=== PATIENT | female | born 1960 | race Caucasian/White ===

== ENCOUNTER → 2020-08-30 13:57 | Outpatient (BNVA) | payer OTHER, SELFPAY | PROVIDERS: Family Provider Nurse Practitioner Family; PCP Nurse Practitioner Family; Visit Provider Nurse Practitioner Family | DX: R53.83 Other fatigue (principal); E55.9 Vitamin D deficiency, unspecified | CPT/HCPCS: 80053; 82306; 82607; 84439; 84443; 85025 ==

== ENCOUNTER → 2020-10-25 11:26 | Outpatient (BNVA) | payer OTHER, SELFPAY | PROVIDERS: Family Provider Nurse Practitioner Family; Visit Provider Nurse Practitioner Family | DX: R74.8 Abnormal levels of other serum enzymes (principal); F32.9 Major depressive disorder, single episode, unspecified; R79.89 Other specified abnormal findings of blood chemistry | CPT/HCPCS: 80076 ==

== ENCOUNTER 2020-10-31 07:07 | Outpatient (CLI) | payer OTHER, SELFPAY ==
--- NOTE | 2020-10-31 07:15 | US_ITS ---
WS: [id number] Complete ABDOMINAL ULTRASOUND HISTORY: R79.89 - Other specified abnormal findings of blood chemistry COMPARISON: 03/04/2013 Liver: 19.2 cm in length. Moderately enlarged liver with increased attenuation and echogenicity which is coarsened. No bile duct dilatation or mass. Gallbladder: Prior cholecystectomy. Pancreas: Normal size and echogenicity. CBD: 0.6 cm. Right kidney: 10.2 cm x 6.0 cm x 5.2 cm. No mass, cortical thickening or hydronephrosis. Left kidney: 12.8 cm x 5.9 cm x 5.8 cm. No mass, cortical thickening or hydronephrosis. Spleen: Normal size and echogenicity. Abdominal aorta and IVC are within normal limits. No ascites. US/US abdomen complete* [id number] IMPRESSION: 1. Prior cholecystectomy. 2. Moderate hepatomegaly and hepatic steatosis. 3. No bile duct dilatation.
== END 2020-10-31 07:08 | disposition home or self-care (01) ==
LOC: RAD 07:09
PROVIDERS: Visit Provider Nurse Practitioner Family
DX: R79.89 Other specified abnormal findings of blood chemistry (principal); Z90.49 Acquired absence of other specified parts of digestive tract; R16.0 Hepatomegaly, not elsewhere classified; K76.0 Fatty (change of) liver, not elsewhere classified
CPT/HCPCS: 76700

== ENCOUNTER → 2021-01-03 11:21 | Outpatient (BNVA) | payer OTHER, SELFPAY | PROVIDERS: PCP Nurse Practitioner Family; Visit Provider Nurse Practitioner Family | DX: R33.9 Retention of urine, unspecified (principal); F32.9 Major depressive disorder, single episode, unspecified; M25.541 Pain in joints of right hand; M25.542 Pain in joints of left hand; R79.89 Other specified abnormal findings of blood chemistry; E55.9 Vitamin D deficiency, unspecified; G43.009 Migraine without aura, not intractable, without status migrainosus; N31.9 Neuromuscular dysfunction of bladder, unspecified | CPT/HCPCS: 80053; 82306; 85025; 85651; 86038; 86140; 86431 ==

== ENCOUNTER → 2021-03-14 08:57 | Outpatient (BNVA) | payer OTHER, SELFPAY | PROVIDERS: PCP Nurse Practitioner Family; Referring Provider Nurse Practitioner Family; Visit Provider Internal Medicine Rheumatology | DX: M19.90 Unspecified osteoarthritis, unspecified site (principal); R76.8 Other specified abnormal immunological findings in serum; Z79.899 Other long term (current) drug therapy; Z11.59 Encounter for screening for other viral diseases; Z11.1 Encounter for screening for respiratory tuberculosis; E55.9 Vitamin D deficiency, unspecified; R09.89 Other specified symptoms and signs involving the circulatory and respiratory systems; R68.2 Dry mouth, unspecified; R60.0 Localized edema; Z87.891 Personal history of nicotine dependence | CPT/HCPCS: 99204 ==

== ENCOUNTER 2021-03-16 13:48 | Outpatient (CLI) | payer OTHER, SELFPAY ==
--- NOTE | 2021-03-16 13:51 | XR_ITS ---
WS: [id number] Chest 2 views, 03/16/2021 Clinical Data: Z79.899 - Other emt intermediate (current) drug therapy Comparison: Portable chest, 10/11/2011. Findings: No nodules, masses or effusions are seen. The heart is normal. The pulmonary vascularity is not increased. No pneumonia or pneumothorax is seen. XR/XR chest 2V* [id number] Impression: Negative chest.
--- NOTE | 2021-03-16 13:51 | XR_ITS ---
WS: [id number] Left hand, 3 views, 03/16/2021 Clinical Data: Z79.899 - Other alf (current) drug therapy Comparison: None. Findings: No fractures or dislocations are seen. The soft tissues are unremarkable. There is osteoarthritic betty rowing of the DIP joints of the second through fifth fingers of the left hand. There is no periarticular calcification seen. XR/XR hand LT min 3V* [id number] Impression: Osteoarthritis of the DIP joints of the second through fifth fingers of the lef t hand.
--- NOTE | 2021-03-16 13:51 | XR_ITS ---
WS: [id number] Right hand, 3 views, 03/16/2021 Clinical Data: Z79.899 - Other half-way (current) drug therapy Comparison: None. Findings: No fractures or dislocations are seen. The soft tissues are unremarkable. There is joint space narrowing of the second through fifth PIP joints of the right hand. No periarticular demineralization is seen. XR/XR hand RT min 3V* [id number] Impression: Osteoarthritis of the second through fifth PIP joints of the right hand.
--- NOTE | 2021-03-16 13:51 | XR_ITS ---
WS: [id number] Right foot, 3 views, 03/16/2021 Clinical Data: Z79.899 - Other half-way (current) drug therapy Comparison: None. Findings: No fractures or dislocations are seen. No bone destruction or erosion is noted. There is a bunion at the head of the right first metatarsal.There is a plantar spur. XR/XR foot RT min 3V* [id number] Impression: Small bunion at the head of the right first metatarsal
--- NOTE | 2021-03-16 13:51 | XR_ITS ---
WS: [id number] Left foot, 3 views, 03/16/2021 Clinical Data: Z79.899 - Other retirement (current) drug therapy Comparison: None. Findings: No fractures or dislocations are seen. No bone destruction or erosion is noted. Is a small bunion at the left first metatarsal.There is a small plantar spur. XR/XR foot LT min 3V* [id number] Impression: Small bunion at head of left first metatarsal.
[2021-03-16 16:59] LABS: Bilirubin Urine Neg (Negative); Blood Urine Neg (Negative); Glucose Urine UA Norm (Normal); Ketones Urine Negative (Negative); Leukocyte Esterase Urine Negative (Negative); Nitrate Urine Negative (Negative); Protein Urine Neg (Negative); Specific Gravity, Urine 1.015 (1.005-1.030); Urine Appearance Clear (CLEAR); Urine Color Yellow (Yellow); Urobilinogen Urine Norm (Negative); pH Urine 5 (5-7)
[2021-03-16 17:04] LABS: Add Urine Culture? No; Bacteria Urine 1+ /hpf; Mucus Urine 1+ /hpf
[2021-03-16 17:16] LABS: Urine Creatinine 66 mg/dL (28-217)
[2021-03-16 17:31] LABS: 25 Hydroxy Vitamin D 31 ng/mL (30-100); Alanine Aminotransferase 37 U/L (0-33); Albumin Level 4.5 g/dL (3.5-5.2); Alkaline Phosphatase 177 IU/L (35-105); Aspartate Amino Transferase 25 U/L (0-32); Globulin 2.7 g/dL (1.3-4.6); Total Bilirubin 0.2 mg/dL (0.15-1.2); Total Protein 7.2 g/dL (6.6-8.7)
[2021-03-16 22:28] LABS: Hepatitis B Core AB, Total Non-Reactive (Nonreactive); Hepatitis B Surface Antigen Non-Reactive (Nonreactive); Hepatitis C Virus Antibody Non-Reactive (Nonreactive)
[2021-03-16 22:43] LABS: Complement C3 160 mg/dL (90-180)
[2021-03-18 12:03] LABS: Quantiferon Mitogen 7.66 IU/mL; Quantiferon Nil 0.01 IU/mL; Quantiferon TB Gold NEGATIVE (NEGATIVE)
[2021-03-20 12:18] LABS: COMPLEMENT COMPONENT C3C 177 mg/dL (83-193); COMPLEMENT COMPONENT C4C 25 mg/dL (15-57)
[2021-03-20 12:53] LABS: COMPLEMENT, TOTAL (CH50) >60 U/mL (31-60)
[2021-03-21 14:14] LABS: THYROID PEROXIDASE ANTIBODIES 1 IU/mL (<9)
[2021-03-23 11:02] LABS: ANA PATTERN Cytoplasmic; ANA SCREEN, IFA POSITIVE (NEGATIVE); Anti-Nuclear AB Pattern #2 Nuclear, Centromere
[2021-03-25 01:33] LABS: DNA AB (DS) CRITHIDIA,IFA NEGATIVE (NEGATIVE)
[2021-03-27 19:17] LABS: CENTROMERE B ANTIBODY >8.0 POS AI (<1.0 NEG); JO-1 ANTIBODY <1.0 NEG AI (<1.0 NEG); RNP ANTIBODY <1.0 NEG AI (<1.0 NEG); SCL-70 ANTIBODY <1.0 NEG AI (<1.0 NEG); SJOGREN'S ANTIBODY (SS-A) <1.0 NEG AI (<1.0 NEG); SM ANTIBODY <1.0 NEG AI (<1.0 NEG); SS-B <1.0 NEG AI (<1.0 NEG)
== END 2021-03-16 13:49 | disposition home or self-care (01) ==
LOC: RAD 13:50
PROVIDERS: PCP Nurse Practitioner Family; Visit Provider Internal Medicine Rheumatology
DX: E55.9 Vitamin D deficiency, unspecified (principal); M19.90 Unspecified osteoarthritis, unspecified site; Z79.899 Other long term (current) drug therapy; R09.89 Other specified symptoms and signs involving the circulatory and respiratory systems; R76.8 Other specified abnormal immunological findings in serum; Z11.59 Encounter for screening for other viral diseases; Z11.1 Encounter for screening for respiratory tuberculosis
CPT/HCPCS: 36415; 71046; 73130; 73630; 80076; 81001; 82306; 82570; 86160; 86162; 86235; 86255; 86376; 86480; 86704; 86803; 87340

== ENCOUNTER 2021-03-31 15:07 | Outpatient (CLI) | payer OTHER, SELFPAY ==
--- NOTE | 2021-03-31 15:14 | US_ITS ---
WS: [id number] ULTRASOUND SOFT TISSUES neck. HISTORY: R60.0 - Localized edema COMPARISON: None available. TECHNIQUE: 2-D and color Doppler imaging is submitted. Ultrasound is directed to the parotid regions. There are a few small minimally complex cystic areas w ithin the parotid gland. There is no increased vascularity within these nodules. The largest in the R IGHT measures 5 x 4 x 5 mm. Largest nodule in the LEFT measures 5 x 4 x 5 mm. No suspicious mass or a denopathy. US/US soft tissue head neck [id number] IMPRESSION: 1. There are small cystic areas within each parotid gland. No solid mass. 2. No cervical lymphadenopathy.
== END 2021-03-31 15:08 | disposition home or self-care (01) ==
PROVIDERS: PCP Nurse Practitioner Family; Visit Provider Internal Medicine Rheumatology
DX: R60.0 Localized edema (principal)
CPT/HCPCS: 76536

== ENCOUNTER → 2021-04-04 13:23 | Outpatient (BNVA) | payer OTHER, SELFPAY | PROVIDERS: PCP Nurse Practitioner Family; Visit Provider Internal Medicine Rheumatology | DX: M19.90 Unspecified osteoarthritis, unspecified site (principal); R76.8 Other specified abnormal immunological findings in serum; R60.0 Localized edema; R68.2 Dry mouth, unspecified; Z79.899 Other long term (current) drug therapy; Z87.891 Personal history of nicotine dependence | CPT/HCPCS: 99214 ==

== ENCOUNTER 2021-04-04 14:53 | Outpatient (CLI) | payer OTHER, SELFPAY ==
[2021-04-04 15:57] LABS: Gamma Glutamyl Transferase 152 U/L (5-36)
== END 2021-04-04 14:54 | disposition home or self-care (01) ==
PROVIDERS: PCP Nurse Practitioner Family; Visit Provider Internal Medicine Rheumatology
DX: R74.8 Abnormal levels of other serum enzymes (principal); Z79.899 Other long term (current) drug therapy; R79.89 Other specified abnormal findings of blood chemistry
CPT/HCPCS: 36415; 82977

== ENCOUNTER → 2021-07-24 12:39 | Outpatient (BNVA) | payer OTHER, SELFPAY | PROVIDERS: PCP Nurse Practitioner Family; Visit Provider Internal Medicine Rheumatology | DX: M19.90 Unspecified osteoarthritis, unspecified site (principal); R76.8 Other specified abnormal immunological findings in serum; R60.0 Localized edema; R68.2 Dry mouth, unspecified; Z86.718 Personal history of other venous thrombosis and embolism; Z87.891 Personal history of nicotine dependence | CPT/HCPCS: 99214 ==

== ENCOUNTER 2021-08-04 11:12 | Outpatient (CLI) | payer OTHER, SELFPAY ==
[2021-08-04 14:03] LABS: Basophils # 0.1 10^3/uL (0.0-0.1); Basophils % 0.7 %; Eosinophils # 0.3 10^3/uL (0.0-0.8); Eosinophils % 3.7 %; Hematocrit 40.4 % (37.0-47.0); Hemoglobin 12.9 g/dL (11.5-15.3); Lymphocytes # 1.4 10^3/uL (0.8-4.8); Lymphocytes % 21.1 %; Mean Corpuscular HGB Conc 31.9 g/dL (30.0-36.0); Mean Corpuscular Hemoglobin 31.6 pg (28.0-34.0); Mean Platelet Volume 11.3 fL (7.4-10.4); Monocytes # 0.3 10^3/uL (0.2-0.9); Neutrophils # 4.63 10^3/uL (1.8-7.7); Neutrophils % 68.8 %; Nucleated Red Blood Cells % 0 %; Platelet Count 193 10^3/cmm (130-400); Red Blood Count 4.08 10^6/uL (4.1-5.3); Red Cell Distribution Width 13.2 % (12.1-15.1); White Blood Count 6.7 10^3/uL (4.0-10.0)
[2021-08-04 14:32] LABS: Alanine Aminotransferase 53 U/L (0-33); Albumin Level 4.3 g/dL (3.5-5.2); Alkaline Phosphatase 134 IU/L (35-105); Aspartate Amino Transferase 38 U/L (0-32); C Reactive Protein 7.5 mg/L (0.0-4.9); Glomerular Filtration Rate 126.3 mL/min (90-130); Total Bilirubin 0.2 mg/dL (0.15-1.2); Total Protein 7.3 g/dL (6.6-8.7)
== END 2021-08-04 11:13 | disposition home or self-care (01) ==
LOC: LAB 11:17
PROVIDERS: PCP Nurse Practitioner Family; Visit Provider Internal Medicine Rheumatology
DX: M19.90 Unspecified osteoarthritis, unspecified site (principal); Z79.899 Other long term (current) drug therapy
CPT/HCPCS: 80076; 82565; 85025; 86140

== ENCOUNTER → 2021-10-06 12:12 | Outpatient (BNVA) | payer OTHER, SELFPAY | PROVIDERS: PCP Nurse Practitioner Family; Visit Provider Nurse Practitioner Family | DX: Z20.822 Contact with and (suspected) exposure to COVID-19 (principal); Z11.52 Encounter for screening for COVID-19 | CPT/HCPCS: 87635 ==

== ENCOUNTER → 2021-12-05 15:50 | Outpatient (BNVA) | payer OTHER, SELFPAY | PROVIDERS: PCP Nurse Practitioner Family; Visit Provider Nurse Practitioner Women's Health | DX: Z01.419 Encounter for gynecological examination (general) (routine) without abnormal findings (principal) | CPT/HCPCS: 87624 ==

== ENCOUNTER 2022-02-05 15:51 | Outpatient (CLI) | payer OTHER, SELFPAY ==
[2022-02-05 16:19] LABS: Basophils # 0.1 10^3/uL (0.0-0.1); Basophils % 0.7 %; Eosinophils # 0.2 10^3/uL (0.0-0.8); Eosinophils % 2.3 %; Hematocrit 43.2 % (37.0-47.0); Hemoglobin 13.2 g/dL (11.5-15.3); Lymphocytes # 2.6 10^3/uL (0.8-4.8); Lymphocytes % 29.9 %; Mean Corpuscular HGB Conc 30.6 g/dL (30.0-36.0); Mean Corpuscular Hemoglobin 30.6 pg (28.0-34.0); Mean Corpuscular Volume 100.2 fl (81-99); Mean Platelet Volume 10.9 fL (7.4-10.4); Monocytes # 0.6 10^3/uL (0.2-0.9); Monocytes % 6.7 %; Neutrophils # 5.26 10^3/uL (1.8-7.7); Neutrophils % 59.7 %; Nucleated Red Blood Cells % 0 %; Platelet Count 200 10^3/cmm (130-400); Red Blood Count 4.31 10^6/uL (4.1-5.3); Red Cell Distribution Width 13.2 % (12.1-15.1); White Blood Count 8.8 10^3/uL (4.0-10.0)
[2022-02-05 16:45] LABS: Alanine Aminotransferase 41 U/L (0-33); Albumin Level 4.2 g/dL (3.5-5.2); Alkaline Phosphatase 114 IU/L (35-105); Aspartate Amino Transferase 25 U/L (0-32); C Reactive Protein 4.5 mg/L (0.0-4.9); Globulin 3.2 g/dL (1.3-4.6); Glomerular Filtration Rate 102.3 mL/min (90-130); Total Bilirubin 0.3 mg/dL (0.15-1.2); Total Protein 7.4 g/dL (6.6-8.7)
== END 2022-02-05 15:52 | disposition home or self-care (01) ==
PROVIDERS: PCP Nurse Practitioner Family; Visit Provider Internal Medicine Rheumatology
DX: M35.00 Sjogren syndrome, unspecified (principal); R76.8 Other specified abnormal immunological findings in serum; Z79.899 Other long term (current) drug therapy
CPT/HCPCS: 80076; 82565; 85025; 86140

== ENCOUNTER 2022-05-29 14:06 | Outpatient (CLI) | payer OTHER, SELFPAY ==
[2022-05-29 14:56] LABS: Basophils # 0.1 10^3/uL (0.0-0.1); Basophils % 0.9 %; Eosinophils # 0.4 10^3/uL (0.0-0.8); Eosinophils % 5.1 %; Hematocrit 41.2 % (37.0-47.0); Hemoglobin 13.7 g/dL (11.5-15.3); Lymphocytes # 1.8 10^3/uL (0.8-4.8); Lymphocytes % 24.8 %; Mean Corpuscular HGB Conc 33.3 g/dL (30.0-36.0); Mean Corpuscular Hemoglobin 31.3 pg (28.0-34.0); Mean Corpuscular Volume 94.1 fl (81-99); Mean Platelet Volume 11.4 fL (7.4-10.4); Monocytes # 0.6 10^3/uL (0.2-0.9); Monocytes % 8.2 %; Neutrophils # 4.46 10^3/uL (1.8-7.7); Neutrophils % 60.3 %; Nucleated Red Blood Cells % 0 %; Platelet Count 174 10^3/cmm (130-400); Red Blood Count 4.38 10^6/uL (4.1-5.3); Red Cell Distribution Width 13.5 % (12.1-15.1); White Blood Count 7.4 10^3/uL (4.0-10.0)
[2022-05-29 15:28] LABS: Alanine Aminotransferase 62 U/L (0-33); Albumin Level 4.4 g/dL (3.5-5.2); Alkaline Phosphatase 123 IU/L (35-105); Aspartate Amino Transferase 31 U/L (0-32); C Reactive Protein 10.7 mg/L (0.0-4.9); Globulin 2.7 g/dL (1.3-4.6); Glomerular Filtration Rate 126.3 mL/min (90-130); Total Bilirubin 0.3 mg/dL (0.15-1.2); Total Protein 7.1 g/dL (6.6-8.7)
== END 2022-05-29 14:07 | disposition home or self-care (01) ==
PROVIDERS: PCP Nurse Practitioner Family; Visit Provider Internal Medicine Rheumatology
DX: M35.00 Sjogren syndrome, unspecified (principal); R76.8 Other specified abnormal immunological findings in serum; Z79.899 Other long term (current) drug therapy
CPT/HCPCS: 36415; 80076; 82306; 82565; 84439; 84443; 85025; 86140

== ENCOUNTER 2022-09-05 13:58 | Outpatient (CLI) | payer OTHER, SELFPAY ==
[2022-09-05 18:33] LABS: Alanine Aminotransferase 49 U/L (0-33); Albumin Level 4.2 g/dL (3.5-5.2); Alkaline Phosphatase 117 U/L (35-105); Aspartate Amino Transferase 23 U/L (0-32); Globulin 3.1 g/dL (1.3-4.6); Total Bilirubin 0.3 mg/dL (0.15-1.2); Total Protein 7.3 g/dL (6.6-8.7)
== END 2022-09-05 13:59 | disposition home or self-care (01) ==
LOC: LAB 14:03
PROVIDERS: PCP Nurse Practitioner Family; Visit Provider Nurse Practitioner Family
DX: K74.3 Primary biliary cirrhosis (principal); K74.00 Hepatic fibrosis, unspecified
CPT/HCPCS: 36415; 80076

== ENCOUNTER 2022-09-12 07:07 | Outpatient (CLI) | payer OTHER, SELFPAY ==
[2022-09-12 08:07] LABS: Basophils # 0.1 10^3/uL (0.0-0.1); Basophils % 0.8 %; Eosinophils # 0.3 10^3/uL (0.0-0.8); Eosinophils % 3.6 %; Hematocrit 39.3 % (37.0-47.0); Hemoglobin 12.8 g/dL (11.5-15.3); Lymphocytes # 1.9 10^3/uL (0.8-4.8); Lymphocytes % 26.4 %; Mean Corpuscular HGB Conc 32.6 g/dL (30.0-36.0); Mean Corpuscular Volume 98.3 fl (81-99); Monocytes # 0.5 10^3/uL (0.2-0.9); Monocytes % 6.3 %; Neutrophils # 4.56 10^3/uL (1.8-7.7); Neutrophils % 62.4 %; Nucleated Red Blood Cells % 0 %; Platelet Count 178 10^3/cmm (130-400); Red Cell Distribution Width 13.5 % (12.1-15.1); White Blood Count 7.3 10^3/uL (4.0-10.0)
[2022-09-12 08:18] LABS: Estmated Average Glucose 105; Hemoglobin A1C 5.3 % (4.0-6.0)
[2022-09-12 08:31] LABS: Alanine Aminotransferase 46 U/L (0-33); Albumin Level 4.1 g/dL (3.5-5.2); Alkaline Phosphatase 115 U/L (35-105); Anion Gap 16.1 (5-19); Aspartate Amino Transferase 26 U/L (0-32); Blood Urea Nitrogen 9 mg/dL (8-23); Calcium 9.6 mg/dL (8.5-10.5); Carbon Dioxide 26 mmol/L (22-29); Chloride 101 mmol/L (98-107); Chol HDL Ratio 4.04 mg/dL (0.0-4.40); Cholesterol 202 mg/dL (0-200); Globulin 2.9 g/dL (1.3-4.6); Glomerular Filtration Rate 162.8 mL/min (90-130); Glucose 96 mg/dL (65-115); HDL Cholesterol 50 mg/dL (60-100); LDL Cholesterol Calculated 123 mg/dL (50-129); LDL HDL Ratio 2.46 RATIO (0.00-3.22); Osmolality Calculated 287 mOsm/kg (285-295); Potassium 4.1 mmol/L (3.5-5.1); Sodium 139 mmol/L (136-145); Thyroid Stimulating Hormone 1.88 uIU/mL (0.27-4.20); Total Bilirubin 0.4 mg/dL (0.15-1.2); Triglycerides 144 mg/dL (0-150)
[2022-09-12 08:32] LABS: Free T4 Free Thyroxine 1.34 ng/dL (0.82-1.77)
[2022-09-12 09:08] LABS: 25 Hydroxy Vitamin D 41 ng/mL (30-100); Vitamin B12 613 pg/mL (232-1245)
[2022-09-18 10:48] LABS: Vitamin A (Retinol) 57 mcg/dL (38-98)
== END 2022-09-12 07:08 | disposition home or self-care (01) ==
PROVIDERS: PCP Nurse Practitioner Family; Referring Provider Nurse Practitioner Family; Visit Provider Nurse Practitioner Family
DX: R53.83 Other fatigue (principal); Z79.899 Other long term (current) drug therapy; M25.541 Pain in joints of right hand; M25.542 Pain in joints of left hand; E55.9 Vitamin D deficiency, unspecified
CPT/HCPCS: 36415; 80053; 80061; 82306; 82607; 83036; 84439; 84443; 84590; 85025

== ENCOUNTER 2022-10-01 14:32 | Outpatient (CLI) | payer OTHER, SELFPAY ==
--- NOTE | 2022-10-01 14:39 | XR_ITS ---
WS: [id number] SCREENING DEXA SCAN [employer] CLINICAL INFORMATION: ASYMPTOMATIC POSTMENOPAUSAL STATUS COMPARISON: None. FINDINGS: The L1-L4 bone mineral density measures 1.063 g/cm2. This corresponds to a T score score of -1.0 and Z score of -0.8. Left femoral neck bone mineral density measures 1.018 g/cm2. This corresponds to a T score of 0.1 and Z score of 0.3. Right femoral neck bone mineral density measures 1.006 g/cm2. This corresponds to a T score 0.0of and Z score of 0.2. Mean femoral neck bone mineral density measures 1.012 g/cm2. This corresponds to a T score of 0.0 and Z score of 0.2. XR/XR DEXA axial skeleton* [id number] IMPRESSION: Osteopenia lumbar spine at the lower end of the range. Normal bone mineralizati on femoral necks. Patient's FRAX calculated 10 year probability for major osteoporotic fracture i s 8.2 % and osteoporotic hip fracture is 0.4%.
--- NOTE | 2022-10-01 14:39 | MM_ITS ---
WS: [id number] BILATERAL 3D TOMOSYNTHESIS DIGITAL SCREENING MAMMOGRAPHY WITH CAD CLINICAL INFORMATION: Z12.39 - Encounter for other screening for malignant neop... HISTORY: Screening mammogram. No current complaints. COMPARISON: 2019 TECHNIQUE: Bilateral CC and MLO views. FINDINGS: Scattered fibroglandular densities bilaterally. No suspicious focal mass, asymmetry, calcifications, or architectural distortion. No evidence of malignancy. Punctate calcifications. Vascular calcificati ons. MM/[place] [id number] IMPRESSION: BI-RADS: 2-Benign FOLLOW UP: 1 Year Follow-up Recommend return to annual screening mammography.
== END 2022-10-01 14:33 | disposition home or self-care (01) ==
PROVIDERS: PCP Nurse Practitioner Family; Visit Provider Nurse Practitioner Family
DX: Z78.0 Asymptomatic menopausal state (principal); Z12.39 Encounter for other screening for malignant neoplasm of breast; M85.88 Other specified disorders of bone density and structure, other site
CPT/HCPCS: 77063; 77067; 77080

== ENCOUNTER 2022-12-13 12:03 | Outpatient (CLI) | payer OTHER, SELFPAY ==
--- NOTE | 2022-12-13 12:16 | XR_ITS ---
WS: [id number] XR hip BI 3-4V wo/[place] [id number] REASON FOR EXAM: M25.552 - Pain in left hip FINDINGS: RIGHT HIP: Moderate narrowing of the right hip joint space with moderate subchondral sclerosis and osteophytosis of the acetabulum. No abnormality of the femoral head and neck, trochanter, or proximal femoral shaft. No soft tissue abnormality. XR/XR hip BI 3-4V wo/w pel [id number] IMPRESSION: Moderate osteoarthritis the right hip. LEFT HIP: Severe narrowing of the left hip joint with essentially [id number]-[id number] in the sup erior anterior joint. Small area of flattening and sclerosis in the femoral hea d adjacent to the ligj-xm-[id number] articulation with the acetabulum. Osteophyte formation along the femoral head and neck junction. Trochanteric region and proximal femoral shaft are unremarkable. No soft tissue abnormality. IMPRESSION: Severe osteoarthritis of the left hip with gplu-pj-[id number] articulation.
== END 2022-12-13 12:04 | disposition home or self-care (01) ==
PROVIDERS: PCP Nurse Practitioner Family; Visit Provider Nurse Practitioner Family
DX: M16.11 Unilateral primary osteoarthritis, right hip (principal)
CPT/HCPCS: 73522

== ENCOUNTER → 2023-02-18 09:34 | Outpatient (BNVA) | payer OTHER, SELFPAY | PROVIDERS: PCP Nurse Practitioner Family; Referring Provider Nurse Practitioner Family; Visit Provider Specialist | DX: M16.0 Bilateral primary osteoarthritis of hip (principal) | CPT/HCPCS: 73522 ==

== ENCOUNTER 2023-03-13 10:39 | Outpatient (CLI) | payer OTHER, SELFPAY ==
[2023-03-13 12:40] LABS: Basophils % 0.5 %; Eosinophils # 0.2 10^3/uL (0.0-0.8); Eosinophils % 2.4 %; Hematocrit 40.5 % (37.0-47.0); Hemoglobin 13.2 g/dL (11.5-15.3); Lymphocytes # 3.1 10^3/uL (0.8-4.8); Lymphocytes % 35.1 %; Mean Corpuscular HGB Conc 32.6 g/dL (30.0-36.0); Mean Corpuscular Hemoglobin 31.3 pg (28.0-34.0); Mean Platelet Volume 10.9 fL (7.4-10.4); Monocytes # 0.6 10^3/uL (0.2-0.9); Monocytes % 6.6 %; Neutrophils # 4.74 10^3/uL (1.8-7.7); Neutrophils % 54.6 %; Nucleated Red Blood Cells % 0 %; Platelet Count 203 10^3/cmm (130-400); Red Blood Count 4.22 10^6/uL (4.1-5.3); Red Cell Distribution Width 13.6 % (12.1-15.1); White Blood Count 8.7 10^3/uL (4.0-10.0)
[2023-03-13 13:03] LABS: Alanine Aminotransferase 38 U/L (0-33); Albumin Level 4.3 g/dL (3.5-5.2); Alkaline Phosphatase 92 U/L (35-105); Aspartate Amino Transferase 21 U/L (0-32); C Reactive Protein 7.4 mg/L (0.0-4.9); Globulin 2.6 g/dL (1.3-4.6); Glomerular Filtration Rate 162.8 mL/min (90-130); Total Bilirubin 0.3 mg/dL (0.15-1.2); Total Protein 6.9 g/dL (6.6-8.7)
== END 2023-03-13 10:40 | disposition home or self-care (01) ==
PROVIDERS: PCP Nurse Practitioner Family; Visit Provider Internal Medicine Rheumatology
DX: Z01.89 Encounter for other specified special examinations (principal)
CPT/HCPCS: 80076; 82565; 85025; 86140

== ENCOUNTER → 2023-03-19 11:29 | Outpatient (BNVA) | payer OTHER, SELFPAY | PROVIDERS: PCP Nurse Practitioner Family; Visit Provider Internal Medicine Rheumatology | DX: M17.12 Unilateral primary osteoarthritis, left knee (principal); M25.562 Pain in left knee; M25.561 Pain in right knee; M25.462 Effusion, left knee; M54.2 Cervicalgia | CPT/HCPCS: 72040; 73562 ==

== ENCOUNTER → 2023-04-15 14:23 | Outpatient (BNVA) | payer OTHER, SELFPAY | PROVIDERS: PCP Nurse Practitioner Family; Visit Provider Anesthesiology Pain Medicine | DX: M16.9 Osteoarthritis of hip, unspecified (principal) | CPT/HCPCS: 77002 ==

== ENCOUNTER 2023-04-16 09:18 | Outpatient (CLI) | payer OTHER, SELFPAY ==
--- NOTE | 2023-04-16 09:30 | MR_ITS ---
WS: [id number] MRI LUMBAR SPINE NONCONTRAST HISTORY: M54.16 - Radiculopathy, lumbar region, LEFT leg pain. COMPARISON: None available. TECHNIQUE: Sagittal and axial multisequence imaging is submitted. Moderate increase in the lumbar lordosis. Disc spaces are narrowed and desiccated throughout the lumb ar spine. No marrow edema or fracture. Conus terminates normally at L1-2 disc level. T12-L1: Mild asymmetric disc bulging to the RIGHT. Mild encroachment upon the RIGHT subarticular rece ss. L1-L2: Mild disc bulging. No stenosis. Small LEFT facet joint cyst. L2-L3: Very mild annular disc bulge with ligamentum flavum and facet arthritis. Small amount of fluid in the LEFT facet joint. L3-L4: Minimal disc bulging with a shallow broad-based central to LEFT paracentral disc protrusion. V junaid mild contact on the traversing LEFT L4 nerve root. L4-L5: Mild to moderate bilateral facet joint arthritis and ligamentum flavum hypertrophy. Small amou nt of fluid in the LEFT facet joint. There is very slight encroachment upon the subarticular recesses . L5-S1: Mild annular disc bulging. Asymmetric disc bulging to the RIGHT contacting the RIGHT S1 nerve root. Lesser contact on the LEFT S1 nerve root. No significant foraminal stenosis. Several small renal cyst RIGHT kidney with the largest measuring 2.5 cm. MR/MR lumbar spine wo con* [id number] IMPRESSION: 1. No high-grade central stenosis. 2. Asymmetric disc bulging to the RIGHT at L5-S1 with a disc contacting the RI GHT S1 nerve root. Slightly less contact on the LEFT S1 nerve root. 3. Broad-based central to LEFT paracentral disc protrusion at L3-4. Very minim al contact on the traversing LEFT L4 nerve root. 4. Minimal encroachment upon the subarticular recesses at L4-5. 5. Facet joint arthritis from L3-4 to L5-S1. Most significant at L4-5.
== END 2023-04-16 09:19 | disposition home or self-care (01) ==
PROVIDERS: PCP Nurse Practitioner Family; Visit Provider Anesthesiology Pain Medicine
DX: M51.17 Intervertebral disc disorders with radiculopathy, lumbosacral region (principal); M47.897 Other spondylosis, lumbosacral region
CPT/HCPCS: 72148

== ENCOUNTER → 2023-07-15 15:00 | Outpatient (BNVA) | payer OTHER, SELFPAY | PROVIDERS: PCP Nurse Practitioner Family; Visit Provider Specialist | DX: M16.0 Bilateral primary osteoarthritis of hip (principal) | CPT/HCPCS: 81003; 85025 ==

== ENCOUNTER 2023-07-16 10:01 | Observation (INO) | payer OTHER, SELFPAY ==
[2023-07-12 14:09] VITALS: BMI 32.6
[2023-07-16] VITALS (23 sets, daily range): BP systolic 110–166; BP diastolic 56–92; PULSE 60–78; RESP 15–18; TEMP 36–36.9; O2SAT 74–99
[2023-07-16] MEDS: acetaminophen 1,000 MG/100 ML PIGGYBACK 400 MG IV ×3 (06:29→22:18)
[2023-07-16] MEDS: sodium chloride 0.9% 1,000 ML 30 ML IV (06:29)
[2023-07-16] MEDS: gabapentin 300 mg Capsule PO (06:29)
[2023-07-16] MEDS: CELEcoxib 200 mg Capsule 400 MG PO (06:30)
[2023-07-16] MEDS: scopolamine 1.5 Patch 1 PATCH TRANSDERMA (06:50)
--- NOTE | 2023-07-16 06:57 | P.HPUD_ITS ---
Surgery/Procedure H&P Update DATE OF PROCEDURE: July 16, 2023 DATE H&P PERFORMED: 07/15/23 H&P UPDATE INFORMATION: I have reviewed H&P completed within last 30 days, I have examined patient prior to procedure, No changes to prior documentation and H&P is in [facility] EMR on date indicated PLANNED PROCEDURE: Operation Date: 07/16/23 07:00 Proposed Procedures p LEFT TOTAL HIP ARTHROPLASTY 70040, M16.9(Left) - Ariadna Peter MD Related Problem List Diagnoses (1) Primary osteoarthritis of left hip:
[2023-07-16] MEDS: ceFAZolin 2,000 MG in sodium chloride 0.9% (plus) 50 ML 100 MG IV ×3 (07:03→22:38)
--- NOTE | 2023-07-16 07:32 | P.ANESASSM_ITS ---
Pre-Anesthetic Assessment Height/Weight: Height 1.73 m Weight 97.522 kg Temp Pulse Resp BP Pulse Ox O2 Del Method 96.8 F L 77 18 166/89 97 Room Air 07/16/23 06:07 07/16/23 06:07 07/16/23 06:07 07/16/23 06:07 07/16/23 06:07 07/16/23 06:08 Operation Date: 07/16/23 07:00 Proposed Procedures p LEFT TOTAL HIP ARTHROPLASTY 18364, M16.9(Left) - Ariadna Peter MD Familial anesthetic complications: none Was Beta Dean taken within 24 hours: N/A Was Clonidine taken within 24 hours: N/A Last intake: Intake Last Liquid Date 07/15/23 Last Liquid Time 21:00 Last Solid Date 07/15/23 Last Solid Time 21:00 Social No alcohol and No tobacco Exam alert, oriented x 3, clear to auscultation bilaterally and regular rate & rhythm Airway Submandibular: within normal limits Cervical ROM: within normal limits Mallampati: Class II Self cath GI Gastroesophageal Reflux Disease Metabolic Chronic steroid Musc/skel Osteoarthritis/DJD and Rheumatoid Arthritis Neuropsych Anxiety, Depression and Headache Anesthetic Plan ASA status: 3 Anesthesia: Regional (specify below) (SAB) Medications/Allergies Home Medications Medication Instructions Recorded Confirmed Last Taken Type aspirin 81 mg chewable tablet 81 mg PO DAILY 09/19/20 07/15/23 07/12/23 History (Germain Chewable Low Dose Aspirin) fluticasone propionate 50 2 spray intranasal DAILY PRN 09/19/20 07/15/23 07/12/23 History mcg/actuation nasal Allergy Symptoms spray,suspension (Flonase Allergy Relief) glucosamine HCl 500 mg tablet 500 mg PO BID 09/19/20 07/16/23 07/15/23 22:30 History magnesium 30 mg tablet 30 mg PO DAILY 01/03/21 07/15/23 07/12/23 History ascorbic acid (vitamin C) 1 tab PO DAILY 10/02/21 07/16/23 07/15/23 22:30 History cholecalciferol (vitamin D3) 25 2,000 unit PO DAILY 10/02/21 07/15/23 07/09/23 History mcg (1,000 unit) capsule loratadine 10 mg tablet (Claritin) 10 mg PO DAILY PRN Allergy Symptoms 12/05/21 07/15/23 07/12/23 History riboflavin (vitamin B2) 100 mg 100 mg PO DAILY 12/05/21 07/15/23 07/12/23 History tablet ondansetron HCl 4 mg tablet 4 mg PO TID PRN nausea and 01/18/23 07/15/23 07/12/23 Rx vomiting #30 tabs methenamine hippurate 1 gram tablet 1 g PO BID #180 tabs 02/05/23 07/16/23 07/15/23 22:30 Rx cevimeline 30 mg capsule 1 cap PO TID #90 caps 05/20/23 07/16/23 07/15/23 22:30 Rx pantoprazole 40 mg tablet,delayed 40 mg PO QAM #90 tabs 05/20/23 07/16/23 07/15/23 22:30 Rx release prednisone 5 mg tablet 5 mg PO DAILY #90 tabs 05/20/23 07/15/23 07/12/23 Rx divalproex 250 mg tablet,delayed 250 mg PO DAILY 07/12/23 07/16/23 07/15/23 22:30 History release (Depakote) escitalopram oxalate 20 mg tablet 20 mg PO DAILY 07/12/23 07/16/23 07/15/23 22:30 History leflunomide 10 mg tablet 10 mg PO DAILY 07/12/23 07/16/23 07/15/23 22:30 History nystatin 100,000 unit/gram topical 100,000 unit topical DAILY 07/12/23 07/16/23 07/15/23 22:30 History powder sulfasalazine 500 mg tablet 500 mg PO DAILY 07/12/23 07/15/23 07/12/23 History Allergies Allergy/AdvReac Type Severity Reaction Status Date / Time doxepin Allergy Intermediate SOB Verified 07/16/23 06:02 nitrofurantoin Allergy ADR-Dizzine Verified 07/16/23 06:02 [From Macrodantin] ss topiramate [From Topamax] Allergy ALGY-Rash Verified 07/16/23 06:02 tramadol [From Ultram] Allergy ADR-Halluci Verified 07/16/23 06:02 nating Current Medications Generic Name Dose Route Start Last Admin Trade Name Freq PRN Reason Stop Dose Admin Sodium Chloride 1,000 mls @ 30 mls/hr 07/16/23 06:00 07/16/23 06:29 Sodium Chloride 0.9% IV 07/17/23 05:59 30 mls/hr .Q24H CARMITA Administration PFSH Anesthesia Medical History Centromere antibody positive Depression Dry mouth GERD (gastroesophageal reflux disease) High risk medication use History of DVT of lower extremity (~09/2011) Right leg History of shingles Occurred in approximately 2016 Immunization counseling Inflammatory arthritis Neurogenic bladder Patient found to have badly distended poorly emptying bladder. Had performed self-catheterization for several years with slow recovery of spontaneous voiding. No pertinent past medical history neghx: htn,dm,thyroid,PE PCP: Lisa Alvarez SERGIO (obstructive sleep apnea) Using CPAP. Positive TARA (antinuclear antibody) Sicca syndrome Swelling of both parotid glands Urinary retention Surgical History History of cholecystectomy (~1997) Laparoscopic Hx of tonsillectomy Hx of tubal ligation (~1989) S/P endometrial ablation (09/08/04) Hysteroscopy with ThermaChoice endometrial ablation. Performed by Dr. Menjivar at [facility] in [place], [place] Family History Father Diabetes Heart disease Hypertension Grandmother Diabetes Paternal Heart disease Maternal Grandfather Stroke Maternal Family/Other Breast cancer Maternal Aunt--dx age 60's Ovarian cancer Maternal Aunt--dx age 60's Other Cancer Denies family history of Colon cancer Uterine cancer Thyroid disease Social History Smoking and tobacco status: never smoked Quit status (tobacco): has quit using tobacco Year quit tobacco: 10-15 YRS AGO Second hand smoke exposure: No Alcohol intake: never Substance/Drug Use: never Current occupational status: employed Current gender identity: Female Data Anesthesia Cardiac Studies: No Data to Display
--- NOTE | 2023-07-16 07:44 | SUR.OPER ---
called daughter and notified her of surgical start.
[2023-07-16] MEDS: ceFAZolin 1,000 mg SDV 1000 MG IRRIGATION (07:55)
[2023-07-16] MEDS: vancomycin 1,000 MG SDV 1000 MG INTRA-ARTI (07:56)
[2023-07-16] MEDS: BUPivacaine 0.5% INJ 30 mL INJECTION (09:17)
--- NOTE | 2023-07-16 09:58 | XR_ITS ---
WS: [id number] EXAMINATION: XR pelvis 1-2V* [id number] REASON FOR EXAM: S/P NIGEL COMPARISON: 02/18/2023 ORDER DATE: 07/16/2023 10:00 AM FINDINGS: There is no sign of any acute postoperative changes. Total left hip arthroplasty changes appear stabl e. No acute pelvic abnormality. IMPRESSION: Postoperative changes with satisfactory prosthesis positioning.
--- NOTE | 2023-07-16 10:20 | PM.OP ---
Operative Report Date of procedure: July 16, 2023 Pre-op diagnosis: Severe degenerative osteoarthritis left hip with femoral head collapse Post-op diagnosis: Severe degenerative osteoarthritis left hip with femoral head collapse Post-op findings: The patient posterior wall requiring screw fixation. Procedure done: Left total hip arthroplasty Implants: The [employer] total hip system with a size 52 mm by E alpha code Trident II Tritanium cluster hole acetabular shell with 6.5 mm low-profile hex head screws x3, an MDM liner size 42 mm inner diameter by E alpha code.? A size 4 Accolade II 127? neck angle hip stem with a size 28 mm x +0 mm femoral head and a pentecostalism MDM X3 insert size [id number] Specimens removed/disposition: Femoral head, disposed of Pathology: none sent Surgeon: Ariadna Peter Teacher Adult Education: [facility] operating room technicians Anesthesia: MAC (With spinal, ASA 3) Estimated blood loss (mL): 250 IV fluids (mL): 1,000 Urine output (mL): 300 Complications: None Findings: The hip was stable at 90 degrees of flexion with 30 degrees of adduction and 80 degrees of internal rotation.? It was also stable to external rotation and to toe hang. Posterior wall was deficient, and screws were utilized. Condition: stable Disposition: PACU (Then return to floor for postoperative rehabilitation and pain management) Brief History: This is an established 63 year old female patient here today for evaluation of her left hip pain. Patient states that she has had the pain for years. Patient states the left is worse than the right hip. Patient describes the pain as aching and sharp. Patient states the pain is to the lateral hip and into the groin area. After discussion, the patient wished to proceed with left total hip arthroplasty. Risks and complications were discussed with her and consents were signed in the office. Questions were answered. In the preoperative holding area, the extremity was marked. Procedure: Patient was brought to the operating theater.? She was transferred to the operating room table and subsequently administered a spinal anesthesia with MAC, ASA 3.? Following administration of adequate anesthesia, the patient was placed in full lateral position and held in position with a pegboard.? The patient's left lower extremity was then prepped and draped in usual fashion utilizing DuraPrep.? It was draped free.? Following prepping and draping, a surgical pause was performed.? At the time of surgical pause, we identified the site and side of surgery.? We also identified the patient and preoperative surgical markings.?Confirmation was made of equipment availability.? Additionally, the patient's preoperative IV antibiotic, Ancef 2 g, and TXA administration was confirmed as well.? X-rays were also reviewed. Following the surgical pause, an incision was made centering over the patient's greater trochanter continuing proximally and distally as necessary to allow access to the hip joint.? Dissection continued through skin and soft tissues using a scalpel, and hemostasis was obtained using electrocautery. Incision was extended secondary to the soft tissue in the area of the incision.? Sciatic nerve was identified and protected throughout the surgical procedure.? A Charnley U retractor was placed after the tensor fascia kanika had been incised longitudinally, and the sciatic nerve had been identified.? The hip was internally rotated, and the piriformis muscle was identified and tagged. Piriformis muscle along with the remaining short external rotators were then incised from the posterior aspect of the hip joint.? These were retracted posteriorly.? The capsule was entered in a T-type fashion with the edges being tagged, and subsequently the hip was dislocated.? There was very thickened labrum as well.? This was excised with further excision accomplished once the femoral head was removed.? Following hip dislocation, a femoral neck osteotomy was accomplished in the appropriate position.? The head was measured, but it was quite deformed.? Subsequently, it was disposed of.? We then evaluated the acetabulum. The femur was retracted anteriorly.? Soft tissues were retracted, and the labrum was removed.? We then began reaming.? Once the femoral head was removed, there was noted to be significant loss of cartilage over the head with the previously noted deformity and within the acetabulum.? We reamed to a size 51 to allow for a size 52 acetabular shell.? There was noted to be deficiency to the posterior wall. Care was taken not to over deep and the acetabulum to maintain soft tissue particularly given the patient's young age. Secondary to the soft bone present with reaming and with palpation, the decision was made to use screw fixation into the acetabular component. The acetabulum was impacted into position, and screws were placed uneventfully.? The MDM liner was then impacted into position with care being taken to assure it seated appropriately.? It was noted that the acetabulum matched the bony anatomy, but there was posterior deficiency as noted.? The cup was noted to seat nicely and had good fixation upon impact. Attention was directed to the proximal femur.? The proximal femur was lifted out of the wound.? A canal finder was passed after the box chisel.? The reamer was used to lateralize.? We then began broaching. We broached sequentially and had excellent fit and fill with the size 4 broach. ? A trial reduction was attempted with a +0 mm femoral head.? With this construct, the hip was very stable, and leg length was felt to be equal.? With this in place, we had the above excellent stabilities. Therefore, trial components were removed after the hip was dislocated.? The size 4 Accolade II 127? neck angle stem was impacted into position without difficulty and onto this was placed a +0 mm x 28 mm femoral head which had been assembled into the MDM insert size 42E.? With a +0 mm femoral head, we had the above-noted stability.? The stem was noted to seat nicely prior to placement of the femoral head.? The wound was copiously irrigated with 20 mL of Betadine and 500 mL of normal saline mixed together.? Subsequently, we suctioned this out and irrigated the wound copiously with lactated Ringer's.? At this time, with all components in appropriate position, the hip was reduced.? Following reduction of the prosthesis once again, we confirmed the stability of the hip.? Leg lengths were also felt to be satisfactory. Being satisfied with the prosthesis, attention was directed to closure.? Closure was accomplished with 0 Vicryl in the capsular tissues.? Piriformis was reattached with 0 Vicryl as well.? Tensor fascia kanika was closed with 0 Vicryl in an interrupted fashion.? The subcutaneous tissues were closed with a combination of 0 Vicryl and 2-0 Monocryl.? Vancomycin powder and a Gelfoam thrombin mixture was placed into the wound as well.? The wound was injected with bupivacaine plain, 30 cc as a local anesthetic. The skin was closed with a running 4-0 Monocryl followed by Dermabond Prineo followed by OpSite.? The patient was placed in an abduction pillow.? She was returned the Recovery Room in a satisfactory condition and will be discharged to the floor for postoperative rehabilitation and pain management.? There were no complications or specimens. Related Problem List Diagnoses (1) Primary osteoarthritis of left hip:
[2023-07-16] MEDS: gabapentin 300 mg Capsule 600 MG PO (12:31)
[2023-07-16] MEDS: oxyCODONE 5 mg IR Tab/Cap PO ×3 (12:31→20:06)
[2023-07-16] MEDS: chlorhexidine gluconate 0.12% Btl 473 mL 30 ML MUCOUS MEM ×3 (12:32→18:45)
[2023-07-16] MEDS: ondansetron 2 mg/ML SDV 2 mL 4 MG IVP (13:52)
--- NOTE | 2023-07-16 13:57 | ANE.PACU2 ---
Inpatient post-anesthesia follow up: Airway intact: Yes Vital signs: Temperature 97.3 F Pulse Rate 65 Respiratory Rate 18 Blood Pressure 123/74 Pulse Oximetry 98 Oxygen Delivery Me thod Room Air Oxygen Flow Rate Fraction of Inspir ed Oxygen Hydration adequate: Yes Nausea and vomiting: No Pain level: 1 Mental status: Baseline
[2023-07-16] MEDS: CELEcoxib 200 mg Capsule PO (18:45)
[2023-07-16] MEDS: mupirocin oint 22 gm 1 APPLIC NASAL (18:45)
[2023-07-16] MEDS: sennosides-docusate Tablet 2 TAB PO (18:45)
[2023-07-16] MEDS: iron polysaccharide complex 150 mg Capsule PO (18:45)
[2023-07-16] MEDS: calcium carbonate 500 mg Chew Tablet 1000 MG PO (18:45)
[2023-07-17] VITALS (8 sets, daily range): BP systolic 119–122; BP diastolic 64–75; PULSE 68–83; RESP 16–20; TEMP 36.7–37.1; O2SAT 2–98
[2023-07-17] MEDS: oxyCODONE 5 mg IR Tab/Cap PO ×3 (04:14→08:04)
[2023-07-17] MEDS: CELEcoxib 200 mg Capsule PO (06:07)
[2023-07-17] MEDS: pantoprazole DR 40 mg Tablet PO (06:07)
[2023-07-17] MEDS: acetaminophen 1,000 MG/100 ML PIGGYBACK 400 MG IV (06:08)
[2023-07-17 06:09] LABS: Basophils % 0.4 %; Eosinophils # 0.3 10^3/uL (0.0-0.8); Eosinophils % 3.2 %; Hematocrit 36.3 % (36-47); Lymphocytes # 1.1 10^3/uL (0.8-4.8); Mean Corpuscular HGB Conc 31.4 g/dL (30-55); Mean Corpuscular Hemoglobin 30.9 pg (27-33); Mean Corpuscular Volume 98.4 fl (85-98); Mean Platelet Volume 11.5 fL (7.4-10.4); Monocytes # 0.7 10^3/uL (0.2-0.9); Neutrophils # 6.16 10^3/uL (1.8-7.7); Neutrophils % 74.8 %; Nucleated Red Blood Cells % 0 %; Platelet Count 146 10^3/cmm (157-399); Red Blood Count 3.69 10^6/uL (3.85-5.65); Red Cell Distribution Width 13.2 % (12.1-15.1); White Blood Count 8.23 10^3/uL (3.29-11.43)
[2023-07-17] MEDS: ceFAZolin 2,000 MG in sodium chloride 0.9% (plus) 50 ML 100 MG IV (06:26)
[2023-07-17 06:27] LABS: Blood Urea Nitrogen 9 mg/dL (8-23); Calcium 8.5 mg/dL (8.5-10.5); Carbon Dioxide 26 mmol/L (22-29); Chloride 100 mmol/L (98-107); Glomerular Filtration Rate 226.2 mL/min (90-130); Glucose 120 mg/dL (65-115); Osmolality Calculated 280 mOsm/kg (285-295); Sodium 135 mmol/L (136-145)
[2023-07-17] MEDS: escitalopram 10 mg Tablet 20 MG PO (08:04)
[2023-07-17] MEDS: sennosides-docusate Tablet 2 TAB PO (08:04)
[2023-07-17] MEDS: aspirin 325 mg EC Tablet PO (08:04)
[2023-07-17] MEDS: divalproex DR 250 mg Tablet PO (08:04)
[2023-07-17] MEDS: predniSONE 5 mg Tablet PO (08:05)
[2023-07-17] MEDS: iron polysaccharide complex 150 mg Capsule PO (08:05)
[2023-07-17] MEDS: cholecalciferol (vitamin D3) 1,000 unit Tablet 1000 UNIT PO (08:05)
[2023-07-17] MEDS: multivitamin therapeutic Tablet 1 TAB PO (08:05)
[2023-07-17] MEDS: calcium carbonate 500 mg Chew Tablet 1000 MG PO (08:05)
--- NOTE | 2023-07-17 13:28 | PM.DCS ---
Discharge Providers Date of Admission: 07/16/23 10:01 Date of Discharge: July 17, 2023 Attending Provider at Admission: Ariadna Peter MD Attending Provider at Discharge: Ariadna Peter MD Primary Care Provider: XAVIER Lewis Diagnoses at Discharge Discharge Diagnosis (1) History of total left hip arthroplasty: Status: Acute Permanent problem details: Date of procedure: July 16, 2023 Diagnosis: Severe degenerative osteoarthritis left hip with femoral head collapse Procedure done: Left total hip arthroplasty Implants: The Bowen total hip system with a size 52 mm by E alpha code Trident II Tritanium cluster hole acetabular shell with 6.5 mm low-profile hex head screws x3, an MDM liner size 42 mm inner diameter by E alpha code. A size 4 Accolade II 127? neck angle hip stem with a size 28 mm x +0 mm femoral head and a protestant MDM X3 insert size [id number] (2) Primary osteoarthritis of left hip: Status: Acute Reason for Visit Reason for Visit: M16.9 Brief History: This is an established 63 year old female patient here today for evaluation of her left hip pain. Patient states that she has had the pain for years. Patient states the left is worse than the right hip. Patient describes the pain as aching and sharp. Patient states the pain is to the lateral hip and into the groin area.? After discussion, the patient wished to proceed with left total hip arthroplasty.? Risks and complications were discussed with her and consents were signed in the office.? Questions were answered.? In the preoperative holding area, the extremity was marked. Hospital Course Hospital Course Following successful uncemented left total hip arthroplasty, the patient was admitted under observation status for overnight observation. Patient underwent physical therapy and was felt to be safe and independent with her activities of daily living. She had no evidence of DVT. The day following surgery, she was independent and both the patient and her family were comfortable with her being discharged to home. She has a family member who is a physical therapist, and therefore, she is not interested in formal physical therapy as an outpatient. The patient is discharged and will follow-up with me as scheduled. Physical Exam Const: COMMON NORMALS: no acute distress, average body habitus, patient oriented x3 and alert GENERAL APPEARANCE: cooperative and comfortable ORIENTATION/CONSCIOUSNESS: Yes awake HENMT: COMMON NORMALS: normocephalic and atraumatic HEAD & SCALP: normocephalic and atraumatic Eye: GENERAL EYE: appearance normal, both eyes and all related structures Chest: COMMONS NORMALS: normal inspection of the chest Resp: COMMON NORMALS: normal respiratory effort EFFORT & INSPECTION: Yes able to speak in complete sentences and Yes symmetric chest movement Extremity: LEFT LOWER EXTREMITY: Yes hip joint (Dressing is dry and intact.) Left hip: Yes palpation (Minimal to no tenderness.), Yes ROM (Not evaluated.) and Yes neurovascular exam (Intact distally with no evidence of DVT.) Neuro: COMMON NORMALS: patient oriented x3 SENSORIUM/ORIENTATION: Yes alert Psych: COMMON NORMALS: mental status grossly normal APPEARANCE: Yes grossly normal ATTITUDE: Yes calm and Yes engaged ATTENTION/CONCENTRATION: Yes attention grossly intact Skin: COMMON NORMALS: no rashes or lesions noted GENERAL SKIN EXAM: no rashes or lesions noted Urinary Catheter Management: Marino: Cath Placed During This Visit: yes, but has since been removed by the nurse Reason for Continuing Indwelling Catheter: Perioperative Use in Selected Surgeries Urinary Catheter Date of Insertion: 07/16/23 Urinary Catheter Time of Insertion: 07:25 Date Urinary Catheter Removed: 07/17/23 Time Urinary Catheter Discontinued: 06:20 Discharge Data Studies Completed and Pending Completed Studies During Hospitalization Category Date Time Status XR pelvis 1-2V* [id number] Routine Exams 07/16/23 09:58 Completed Laboratory Results WBC 8.23 10^3/uL (3.29-11.43) 07/17/23 05:39 RBC 3.69 10^6/uL (3.85-5.65) L 07/17/23 05:39 Hgb 11.40 g/dL (11.27-16.99) 07/17/23 05:39 Hct 36.3 % (36-47) 07/17/23 05:39 MCV 98.4 fl (85-98) H 07/17/23 05:39 MCH 30.9 pg (27-33) 07/17/23 05:39 MCHC 31.4 g/dL (30-55) 07/17/23 05:39 RDW 13.2 % (12.1-15.1) 07/17/23 05:39 Plt Count 146 10^3/cmm (157-399) L 07/17/23 05:39 MPV 11.5 fL (7.4-10.4) H 07/17/23 05:39 Neut % (Auto) 74.8 % 07/17/23 05:39 Lymph % (Auto) 13.0 % 07/17/23 05:39 [place] % (Auto) 8.0 % 07/17/23 05:39 Eos % (Auto) 3.2 % 07/17/23 05:39 Baso % (Auto) 0.4 % 07/17/23 05:39 Neut # (Auto) 6.16 10^3/uL (1.8-7.7) 07/17/23 05:39 Lymph # (Auto) 1.1 10^3/uL (0.8-4.8) 07/17/23 05:39 [place] # (Auto) 0.7 10^3/uL (0.2-0.9) 07/17/23 05:39 Eos # (Auto) 0.3 10^3/uL (0.0-0.8) 07/17/23 05:39 Baso # (Auto) 0.0 10^3/uL (0.0-0.1) 07/17/23 05:39 Nucleated RBC % (auto) 0 % 07/17/23 05:39 Nucleated RBCs # 0.0 /100WBC 07/17/23 05:39 Sodium 135 mmol/L (136-145) L 07/17/23 05:39 Potassium 4.0 mmol/L (3.5-5.1) 07/17/23 05:39 Chloride 100 mmol/L (98-107) 07/17/23 05:39 Carbon Dioxide 26 mmol/L (22-29) 07/17/23 05:39 Anion Gap 13.0 (5-19) 07/17/23 05:39 BUN 9 mg/dL (8-23) 07/17/23 05:39 Creatinine 0.3 mg/dL (0.5-0.9) L 07/17/23 05:39 GFR Calculation 226.2 mL/min (90-130) H 07/17/23 05:39 Glucose 120 mg/dL (65-115) H 07/17/23 05:39 Calculated Osmolality 280 mOsm/kg (285-295) L 07/17/23 05:39 Calcium 8.5 mg/dL (8.5-10.5) 07/17/23 05:39 Vitals Last Vital Signs Temp 98.7 F 07/17/23 07:50 Pulse 68 07/17/23 07:59 Resp 18 07/17/23 08:04 BP 119/75 07/17/23 07:50 Pulse Ox 98 07/17/23 08:04 O2 Del Method Nasal Cannula 07/17/23 07:59 O2 Flow Rate 2 07/17/23 07:59 Discharge Plan Discharge Patient Disposition: Home Condition: Stable Prescriptions: New acetaminophen 500 mg Tablet 1,000 mg PO Q8H 15 Days Qty: 90 0RF aspirin 325 mg Tablet,Delayed Release (Dr/Ec) 325 mg PO DAILY 30 Days Qty: 30 0RF celecoxib 200 mg Capsule 200 mg PO Q12H 30 Days Qty: 30 0RF oxycodone 5 mg Tablet 5 mg PO Q4H PRN (Reason: Moderate Pain) 7 Days Qty: 30 0RF Continued fluticasone propionate [Flonase Allergy Relief] 50 mcg/actuation spray,suspension 2 spray INTRANASAL DAILY PRN (Reason: Allergy Symptoms) glucosamine HCl 500 mg tablet 500 mg PO BID Rx Instructions: Dose unknown PO twice a day; administer with meals aspirin [Germain Chewable Aspirin] 81 mg tablet,chewable 81 mg PO DAILY riboflavin (vitamin B2) 100 mg tablet 100 mg PO DAILY magnesium 30 mg tablet 30 mg PO DAILY loratadine [Claritin] 10 mg tablet 10 mg PO DAILY PRN (Reason: Allergy Symptoms) cholecalciferol (vitamin D3) 25 mcg (1,000 unit) capsule 2,000 unit PO DAILY ascorbic acid (vitamin C) 1 tab PO DAILY cevimeline 30 mg capsule 1 cap PO TID Qty: 90 3RF pantoprazole 40 mg tablet,delayed release (DR/EC) 40 mg PO QAM Qty: 90 1RF prednisone 5 mg tablet 5 mg PO DAILY Qty: 90 1RF ondansetron HCl 4 mg tablet 4 mg PO TID PRN (Reason: nausea and vomiting) Qty: 30 1RF methenamine hippurate 1 gram tablet 1 g PO BID Qty: 180 3RF sulfasalazine 500 mg tablet 500 mg PO DAILY Rx Instructions: TAKE TWO TABLETS BY MOUTH TWICE DAILY take with food divalproex [Depakote] 250 mg tablet,delayed release (DR/EC) 250 mg PO DAILY Rx Instructions: TAKE 1 TABLET BY MOUTH TWICE DAILY leflunomide 10 mg tablet 10 mg PO DAILY Rx Instructions: TAKE 1 TABLET BY MOUTH EVERY DAY nystatin 100,000 unit/gram powder 100,000 unit topical DAILY Rx Instructions: apply topically four times daily needed FOR SKIN yeast escitalopram oxalate 20 mg tablet 20 mg PO DAILY Rx Instructions: TAKE 1 TABLET BY MOUTH EVERY DAY Discharge Orders: Discharge Order (Routine); Ordered 07/17/23 Ordered By: Ariadna Peter Other Ambulatory Orders: DME: Walker (Order) Location: None Selected Ordered By: Ariadna Peter Referrals: Ariadna Peter MD [Physician] - 07/31/23 8:15 am (Please arrive 15 minutes prior to appointment. ) Claire Castillo FNP [Primary Care Provider] - (MESSAGE SENT TO CLINIC 07/17 @4686) Discharge Diet: Advance as tolerated and Usual diet Discharge Activity: Increase activity as tolerated, Limit activity as instructed, Use walker/crutches as instructed and As per PT/OT instructions Patient Instructions: Aspirin (By mouth), Oxycodone, Rapid Release (By mouth), Celecoxib (By mouth), Total Hip Replacement (GEN), Joint Replacement Stoplight, Opioid Safety Activity Restrictions/Additional Instructions: Posterior hip precautions. Keep dressing in place until it comes off on its own. Weight-bear as tolerated. Progress ambulation per physical therapy direction Discharge Attestations Time Spent in Discharge Care*: greater than 30 min Specific Discharge Activities: educating patient, documenting/other paperwork and evaluating patient/reviewing data Quality Metrics Clinical Quality Measures [ No reported AMI, CVA or VTE this stay] Coding Level of Care Code Acute Code for Chg Fwd Diagnoses History of total left hip arthroplasty Z96.642 Primary osteoarthritis of left hip M16.12
== END 2023-07-17 14:45 | disposition home or self-care (01) ==
LOC: MEDSURG 10:01
PROVIDERS: Admitting Provider Specialist; PCP Nurse Practitioner Family; Visit Provider Specialist
PROC: (CPT 27130; principal; 2023-07-16 07:00)
DX: M16.12 Unilateral primary osteoarthritis, left hip (principal); K21.9 Gastro-esophageal reflux disease without esophagitis; Z79.52 Long term (current) use of systemic steroids; Z79.82 Long term (current) use of aspirin; Z79.899 Other long term (current) drug therapy; Z86.718 Personal history of other venous thrombosis and embolism
CPT/HCPCS: 27130; 36415; 51702; 72170; 80048; 85025; 97110; 97116; 97162; 97165; 97530; C1776; G0378; J0131; J0690; J1170; J2371; J2405; J2704; J3010; J3370; J3490; J7030; J7512

== ENCOUNTER → 2023-07-31 08:09 | Outpatient (BNVA) | payer OTHER, SELFPAY | PROVIDERS: PCP Nurse Practitioner Family; Visit Provider Nurse Practitioner Family | DX: Z96.642 Presence of left artificial hip joint (principal) | CPT/HCPCS: 73502 ==

== ENCOUNTER → 2023-08-19 10:49 | Outpatient (BNVA) | payer OTHER, SELFPAY | PROVIDERS: PCP Nurse Practitioner Family; Visit Provider Internal Medicine Rheumatology | DX: Z79.899 Other long term (current) drug therapy (principal); R76.8 Other specified abnormal immunological findings in serum; M19.90 Unspecified osteoarthritis, unspecified site; Z71.85 Encounter for immunization safety counseling; M35.00 Sjogren syndrome, unspecified | CPT/HCPCS: 36415; 80076; 85025 ==

== ENCOUNTER → 2023-08-27 09:18 | Outpatient (BNVA) | payer OTHER, SELFPAY | PROVIDERS: PCP Nurse Practitioner Family; Visit Provider Physician Assistant | DX: Z96.642 Presence of left artificial hip joint (principal) | CPT/HCPCS: 73502 ==

== ENCOUNTER 2023-09-01 13:28 | Emergency (ER) | payer OTHER, SELFPAY ==
[2023-09-01 13:32] VITALS: BP 158/74; PULSE 78; RESP 16; TEMP 36.5; O2SAT 98; BMI 32.6
--- NOTE | 2023-09-01 13:54 | USR_ITS ---
PROCEDURE INFORMATION: Exam: US Duplex Left Lower Extremity Veins, Limited Exam date and time: 09/01/2023 2:31 PM Age: 63 years old Clinical indication: Pain; Leg, lower; Left; Patient HX: Patient six weeks post hip surg; Additional info: HX of dvt, medial thigh pain, 6 weeks post hip arthroplasty TECHNIQUE: Imaging protocol: Real-time duplex ultrasound of the left extremity with 2-D allen scale, color Doppler flow and spectral waveform analysis including responses to compression and other maneuvers (when performed) with image documentation. Limited exam focused on the left lower extremity veins. COMPARISON: CR XR knee LT 3V* [id number] 03/19/2023 12:30 PM FINDINGS: Left deep veins: Unremarkable. The common femoral, femoral, proximal profunda femoral and popliteal veins are patent without thrombus. Normal Doppler waveforms. Normal compressibility and/or augmentation response. Superficial veins: There is thrombosis within the left greater saphenous/superficial vein in the mid/lower thigh region consistent with superficial thrombophlebitis, best seen on cine recordings. The greater saphenous vein -common femoral vein junction is otherwise patent. Soft tissues: Views of the calf veins are somewhat limited due to body habitus and some subcutaneous soft tissue edema. US/[place] [id number] IMPRESSION: 1. No evidence of DVT. Somewhat limited calf vein assessment due to edema and body habitus. Follow-up may be obtained if clinically indicated. 2. Superficial thrombophlebitis in the mid/lower thigh region.
--- NOTE | 2023-09-01 13:55 | ED_ITS ---
HPI - Extremity Problem General: Chief complaint: Extremity Problem,Nontraumatic Stated complaint: left leg issue Time Seen by Provider: 09/01/23 13:29 History of Present Illness: Sobeida Tinajero is a 63-year-old female that presents to the emergency department with left medial thigh tenderness. States that she is 6 weeks status post left hip arthroplasty. She returned to work this last week and yesterday noted medial thigh pain and swelling. Sent states that she was treated with aspirin 325 daily for the last month and was supposed to be restarted on her usual 81 mg aspirin daily but neglected to resume. Patient does have a history of DVT about 14 years ago. He denies yadira peewee or trauma at that time. Patient's medical history includes rheumatoid arthritis Associated symptoms: Deny chest pain, fever(s) or rash Review of Systems General: Reports: 10 or more systems reviewed and unremarkable except in HPI and below Const: Denies: fever(s), chills, change in appetite, change in weight, fatigue or malaise Eyes: Denies: change in vision, eye discomfort, eye discharge or eye redness ENMT: Denies: throat pain, enlarged tonsils, odynophagia, hoarseness, ear or mastoid pain, ear discharge, change in hearing, tinnitus, nasal discharge, nasal congestion, post nasal drip or sinus pain Card: Denies: chest pain, palpitations, irregular heart rhythm, edema, dyspnea on exertion, orthopnea or leg pain with exertion Resp: Denies: dyspnea, productive cough, non-productive cough, wheezing, stridor or chest congestion GI: Denies: abdominal pain, nausea, vomiting, dysphagia, diarrhea, constipation, bloating, GI cramping or hematochezia : Denies: flank pain, difficulty voiding, dysuria, urinary frequency, urinary urgency, urinary hesitancy, oliguria or hematuria Musc: Denies: neck pain, back pain, extremity pain, joint pain, joint swelling, joint redness, joint warmth or muscle weakness Skin/Breast: Denies: rash, pruritus, erythema, photosensitivity or new lesions Neuro: Denies: headache(s), numbness in extremities, weakness in extremities, sensory changes, lack of coordination, difficulty walking, frequent falls, dizziness, confusion, Slurred speech present, difficulty communicating thoughts, seizure-like activity or involuntary movements Endo: Denies: polyuria, polydipsia or tired all the time Dio/Lymph: Denies: easy bruising or easy bleeding PFSH ED PFSH: Medical History Centromere antibody positive Depression Dry mouth GERD (gastroesophageal reflux disease) High risk medication use History of DVT of lower extremity (~09/2011) Right leg History of shingles Occurred in approximately 2016 Immunization counseling Inflammatory arthritis Neurogenic bladder Patient found to have badly distended poorly emptying bladder. Had performed self-catheterization for several years with slow recovery of spontaneous voiding. No pertinent past medical history neghx: htn,dm,thyroid,PE PCP: Lisa Alvarez SERGIO (obstructive sleep apnea) Using CPAP. Positive TARA (antinuclear antibody) Sicca syndrome Swelling of both parotid glands Urinary retention Surgical History History of cholecystectomy (~1997) Laparoscopic Hx of tonsillectomy Hx of tubal ligation (~1989) S/P endometrial ablation (09/08/04) Hysteroscopy with ThermaChoice endometrial ablation. Performed by Dr. Menjivar at [facility] in [place], [place] Family History Father Diabetes Heart disease Hypertension Grandmother Diabetes Paternal Heart disease Maternal Grandfather Stroke Maternal Family/Other Breast cancer Maternal Aunt--dx age 60's Ovarian cancer Maternal Aunt--dx age 60's Other Cancer Denies family history of Colon cancer Uterine cancer Thyroid disease Social History Smoking and tobacco status: never smoked Quit status (tobacco): has quit using tobacco Year quit tobacco: 10-15 YRS AGO Second hand smoke exposure: No Alcohol intake: never Substance/Drug Use: never Current occupational status: employed Current gender identity: Female Physical Exam Const: COMMON NORMALS: no acute distress, patient oriented x3 and alert GENERAL APPEARANCE: cooperative ORIENTATION/CONSCIOUSNESS: Yes awake, Yes oriented to person, Yes oriented to place and Yes oriented to time Neck/C-Spine: COMMON NORMALS: full ROM GENERAL: Yes normal visual inspection Lymph: LYMPHATIC: no lymphadenopathy noted Chest: COMMONS NORMALS: normal inspection of the chest Breast/axilla inspection: Yes no chest deformity, asymmetry, normal contours, no nodules, masses, tenderness Resp: COMMON NORMALS: normal respiratory effort, No retractions, No use of accessory muscles and clear to auscultation bilaterally EFFORT & INSPECTION: Yes able to speak in complete sentences and Yes symmetric chest movement AUSCULTATION: clear to auscultation bilaterally Cardio: COMMON NORMALS: regular rate, regular rhythm and Peripheral pulses 2+ throughout RATE: regular rate RHYTHM: regular rhythm PERIPHERAL PULSES: Peripheral pulses 2+ throughout GI: COMMON NORMALS: Normal to inspection, nondistended, normoactive bowel sounds present, Soft to palpation, non-tender and No hepatosplenomegaly present INSPECTION: Yes normal to inspection AUSCULTATION: Yes normoactive bowel sounds PALPATION: Yes Soft to palpation and Yes No hepatosplenomegaly present RECTAL EXAM: deferred Extremity: COMMON NORMALS: normal to inspection NARRATIVE EXTREMITY EXAM: Left lower extremity: Skin is clean dry and intact Tenderness to palpation over medial thigh Ecchymosis and edema noted medial thigh Patient has full active range of motion of hip and knee Full active range of motion of ankle Sensation intact light touch at medial, lateral, dorsal, plantar surface of the foot and first webspace DP pulses palpable and cap refills less than 3 seconds GENERAL: Yes normal exam except as noted Neuro: COMMON NORMALS: patient oriented x3 SENSORIUM/ORIENTATION: Yes alert, Yes oriented to person, Yes oriented to place and Yes oriented to time CRANIAL NERVES: Yes CN normal except as noted Psych: COMMON NORMALS: mental status grossly normal, Normal thought process present, cooperative, activity/motor behavior normal, denies homicidal ideation and denies suicidal ideation THOUGHT PROCESS: Normal thought process present Skin: COMMON NORMALS: no rashes or lesions noted, no wounds and turgor normal GENERAL SKIN EXAM: no rashes or lesions noted and turgor normal Course Vital Signs: Vital signs: Vital Signs Temperature 97.7 F 09/01/23 13:32 Pulse Rate 78 09/01/23 13:32 Respiratory Rate 16 09/01/23 13:32 Blood Pressure 158/74 09/01/23 13:32 Pulse Oximetry 98 09/01/23 13:32 Oxygen Delivery Me thod Room Air 09/01/23 13:32 MDM - Extremity (Nontraumatic) Medical Decision Making Patient is a 63-year-old female with a history of DVT presents with concerns for new DVT. Differential diagnosis includes hematoma, muscle strain, contusion, DVT. Appears to be a hematoma noted on mid thigh medial aspect of the left lower extremity however with the patient's history and recent surgery, I have obtained an ultrasound of the left lower extremity. Ultrasound reveals no evidence of a DVT but there is a superficial thrombophlebitis of the mid lower thigh region. Patient is going to be advised to elevate and ice the extremity in that area. She can resume her daily aspirin She should follow-up with primary care as needed Return to the emergency department for new concerning or worsening symptoms Lab Data Radiology Impressions Venous Duplex 09/01/23 13:54 IMPRESSION: 1. No evidence of DVT. Somewhat limited calf vein assessment due to edema and body habitus. Follow-up may be obtained if clinically indicated. 2. Superficial thrombophlebitis in the mid/lower thigh region. All radiology interpretation(s) finalized by discharge Discharge Plan Discharge Patient Disposition: Home Clinical Impression: Superficial thrombophlebitis Condition: Stable Prescriptions: No Action fluticasone propionate [Flonase Allergy Relief] 50 mcg/actuation spray,suspension 2 spray INTRANASAL DAILY PRN (Reason: Allergy Symptoms) glucosamine HCl 500 mg tablet 500 mg PO BID riboflavin (vitamin B2) 100 mg tablet 100 mg PO BEDTIME cholecalciferol (vitamin D3) 25 mcg (1,000 unit) capsule 1,000 unit PO BID cevimeline 30 mg capsule 1 cap PO TID Qty: 90 3RF leflunomide 10 mg tablet 10 mg PO DAILY Qty: 90 1RF Rx Instructions: (MEDICATION ON HOLD 09/01/23) ondansetron HCl 4 mg tablet 4 mg PO TID PRN (Reason: nausea and vomiting) Qty: 30 1RF methenamine hippurate 1 gram tablet 1 g PO BID Qty: 180 3RF divalproex [Depakote] 250 mg tablet,delayed release (DR/EC) 250 mg PO BEDTIME nystatin 100,000 unit/gram powder See Rx Instructions .ROUTE .COMPLEX Rx Instructions: apply topically four times daily needed FOR SKIN yeast escitalopram oxalate 20 mg tablet 20 mg PO BEDTIME Vitamin C 1,000 mg Tablet 1,000 mg PO BID Tylenol Ex Str Rapid Release 500 mg Tablet 1,000 mg PO Q8H PRN (Reason: Pain) ursodiol 500 mg tablet 500 mg PO BID sulfasalazine 500 mg tablet 1,000 mg PO BID prednisone 5 mg tablet 5 mg PO BEDTIME pantoprazole 40 mg tablet,delayed release (DR/EC) 40 mg PO BEDTIME Discharge Orders: Discharge ED (Routine); Ordered 09/01/23 Ordered By: Cherry Astudillo Referrals: Claire Castillo FNP [Primary Care Provider] - Discharge Diet: Advance as tolerated Discharge Activity: Resume usual activity Patient Instructions: Superficial Thrombophlebitis (ED), Pain Management Coding Level of Care Code ED Bacon De Rinder for Javan Pack
--- NOTE | 2023-09-01 14:40 | PC.PHAR ---
PT STATES SHE TAKES CARE OF HER OWN MEDICATIONS-PT STATES SHE IS SUPPOSE TO BE TAKING A 81MG ASPIRIN DAILY PT STATES LAST TOOK 07/16/23 PT STATES SHE HAD SURGERY AND HAD TAKEN A 325MG ASPIRIN DAILY FOR 30 DAYS NOT TAKEN SINCE 08/16/23-PT STATES SHE TAKES DEPAKOTE DR 250MG BEDTIME EXT SHOWS LAST FILLED 08/30/23 90D/S 250MG BID-PT STATE THE DR PUT HER LEFLUNOMIDE 10MG ON HOLD 2 DAYS AGO EXT SHOWS LAST FILLED 08/16/23 30D/S-PT STATES SHE IS TAKING URSODIOL 500MG BID EXT SHOWS LAST FILLED 06/16/23 30D/S 500MG TID-NOTES ARE MADE IN THE PHARMACY COMMENTS
== END 2023-09-01 16:04 | disposition home or self-care (01) ==
PROVIDERS: Emergency Provider Nurse Practitioner; PCP Nurse Practitioner Family
DX: I80.02 Phlebitis and thrombophlebitis of superficial vessels of left lower extremity (principal); Z87.891 Personal history of nicotine dependence
CPT/HCPCS: 93971; 99284

== ENCOUNTER 2023-10-07 11:51 | Outpatient (CLI) | payer OTHER, SELFPAY ==
--- NOTE | 2023-10-07 11:56 | MM_ITS ---
WS: [id number] VIEWS: MLO and CC views both breasts. 3D digital tomosynthesis is also included in this exam. Comparison made with prior exam of 10/25/2008, 09/21/2011, 10/22/2012, 01/25/2016, 09/14/2019, 10/01/2022 ,. Findings: There was no sign of mass, architectural distortion or suspicious calcification in either breast. The breasts are heterogeneously dense which may obscure small masses Impression: MM/[place] [id number] BI-RADS: 2-Benign finding. FOLLOW-UP: 1 Year Follow-up This mammogram was also analyzed by the Computer Aided Detection System R2 Imag e [employer].
== END 2023-10-07 11:52 | disposition home or self-care (01) ==
LOC: RAD 11:51
PROVIDERS: PCP Nurse Practitioner Family; Visit Provider Nurse Practitioner Women's Health
DX: Z12.31 Encounter for screening mammogram for malignant neoplasm of breast (principal)
CPT/HCPCS: 77063; 77067

== ENCOUNTER → 2023-10-21 07:57 | Outpatient (BNVA) | payer OTHER, SELFPAY | PROVIDERS: PCP Nurse Practitioner Family; Visit Provider Specialist | DX: Z96.642 Presence of left artificial hip joint (principal) | CPT/HCPCS: 73502 ==

== ENCOUNTER 2023-11-01 15:20 | Outpatient (CLI) | payer OTHER, SELFPAY ==
[2023-11-01 16:05] LABS: Alanine Aminotransferase 24 U/L (0-33); Albumin Level 4.3 g/dL (3.5-5.2); Alkaline Phosphatase 89 U/L (35-105); Aspartate Amino Transferase 20 U/L (0-32); Gamma Glutamyl Transferase 55 U/L (5-36); Globulin 2.7 g/dL (1.3-4.6); Total Bilirubin 0.3 mg/dL (0.15-1.2)
== END 2023-11-01 15:21 | disposition home or self-care (01) ==
LOC: LAB 15:22
PROVIDERS: PCP Nurse Practitioner Family; Visit Provider Internal Medicine Rheumatology
DX: Z79.899 Other long term (current) drug therapy (principal); R79.89 Other specified abnormal findings of blood chemistry
CPT/HCPCS: 36415; 80076; 82977

== ENCOUNTER → 2023-11-11 07:56 | Outpatient (BNVA) | payer OTHER, SELFPAY | PROVIDERS: PCP Nurse Practitioner Family; Visit Provider Specialist | DX: M25.562 Pain in left knee (principal); G89.29 Other chronic pain | CPT/HCPCS: 73560; 73565 ==

== ENCOUNTER 2023-11-11 10:15 | Outpatient (CLI) | payer OTHER, SELFPAY | END 2023-11-11 10:16 | disposition home or self-care (01) | LOC: SPT 10:15 | PROVIDERS: PCP Nurse Practitioner Family; Visit Provider Specialist | DX: Z46.89 Encounter for fitting and adjustment of other specified devices (principal); M25.562 Pain in left knee | CPT/HCPCS: L1812 ==

== ENCOUNTER 2023-12-06 11:23 | Outpatient (CLI) | payer OTHER, SELFPAY ==
[2023-12-06 11:49] LABS: Basophils % 0.4 %; Eosinophils # 0.2 10^3/uL (0.0-0.8); Eosinophils % 3.5 %; Hematocrit 37.5 % (36-47); Lymphocytes # 1.9 10^3/uL (0.8-4.8); Lymphocytes % 28.1 %; Mean Corpuscular HGB Conc 32.3 g/dL (30-55); Mean Corpuscular Hemoglobin 31.6 pg (27-33); Mean Corpuscular Volume 97.9 fl (85-98); Mean Platelet Volume 9.8 fL (7.4-10.4); Monocytes # 0.5 10^3/uL (0.2-0.9); Monocytes % 7.5 %; Neutrophils # 4.04 10^3/uL (1.8-7.7); Neutrophils % 59.5 %; Nucleated Red Blood Cells % 0 %; Platelet Count 201 10^3/cmm (157-399); Red Blood Count 3.83 10^6/uL (3.85-5.65); Red Cell Distribution Width 14.4 % (12.1-15.1)
[2023-12-06 12:06] LABS: Alanine Aminotransferase 19 U/L (0-33); Albumin Level 4.1 g/dL (3.5-5.2); Alkaline Phosphatase 76 U/L (35-105); Aspartate Amino Transferase 18 U/L (0-32); C Reactive Protein 12.7 mg/L (0.0-4.9); Gamma Glutamyl Transferase 43 U/L (5-36); Globulin 2.6 g/dL (1.3-4.6); Glomerular Filtration Rate 125.4 mL/min (90-130); Total Bilirubin 0.3 mg/dL (0.15-1.2); Total Protein 6.7 g/dL (6.6-8.7)
== END 2023-12-06 11:24 | disposition home or self-care (01) ==
PROVIDERS: PCP Nurse Practitioner Family; Visit Provider Internal Medicine Rheumatology
DX: Z79.899 Other long term (current) drug therapy (principal); R76.8 Other specified abnormal immunological findings in serum; M19.90 Unspecified osteoarthritis, unspecified site
CPT/HCPCS: 36415; 80076; 82565; 82977; 85025; 86140

== ENCOUNTER → 2023-12-24 16:44 | Outpatient (BNVA) | payer OTHER, SELFPAY | PROVIDERS: PCP Nurse Practitioner Family; Visit Provider Nurse Practitioner Women's Health | DX: Z01.419 Encounter for gynecological examination (general) (routine) without abnormal findings (principal) | CPT/HCPCS: 87624 ==

== ENCOUNTER 2023-12-25 22:48 | Emergency (ER) | payer OTHER, SELFPAY ==
[2023-12-25 23:13] VITALS: BP 146/83; PULSE 70; RESP 17; TEMP 36.5; O2SAT 100
--- NOTE | 2023-12-26 00:39 | CTR_ITS ---
PROCEDURE INFORMATION: Exam: CT Maxillofacial Without Contrast Exam date and time: 12/26/2023 12:57 AM Age: 63 years old Clinical indication: Injury or trauma; Fall; Blunt trauma (contusions or hematomas); Patient HX: Abrasion and pain to nose; Additional info: Fall injury TECHNIQUE: Imaging protocol: Computed tomography of the face without contrast. Radiation optimization: All CT scans at this facility use at least one of these dose optimization techniques: automated exposure control; mA and/or kV adjustment per patient size (includes targeted exams where dose is matched to clinical indication); or iterative reconstruction. COMPARISON: CT head wo contrast 12/26/2023 12:54 AM RADIATION DOSE METRICS: Total DLP (mGy-cm): 635.48 FINDINGS: Orbital cavities: No acute intraorbital abnormality. Globes are intact. Bones/joints: No acute fracture. Paranasal sinuses: Minimal mucosal thickening in the ethmoid and maxillary sinuses, with small mucous retention cysts and/or polyps in both maxillary sinuses. No air-fluid levels. Salivary glands: Multiple tiny parotid gland calcifications bilaterally, nonspecific. Soft tissues: Unremarkable. CT/CT facial bones wo con* [id number] IMPRESSION: No acute findings.
--- NOTE | 2023-12-26 00:39 | CTR_ITS ---
PROCEDURE INFORMATION: Exam: CT Cervical Spine Without Contrast Exam date and time: 12/26/2023 1:00 AM Age: 63 years old Clinical indication: Injury or trauma; Fall; Blunt trauma; Additional info: Fall injury TECHNIQUE: Imaging protocol: Computed tomography of the cervical spine without contrast. Radiation optimization: All CT scans at this facility use at least one of these dose optimization techniques: automated exposure control; mA and/or kV adjustment per patient size (includes targeted exams where dose is matched to clinical indication); or iterative reconstruction. COMPARISON: CR XR cervical spine 3V* [id number] 03/19/2023 12:30 PM RADIATION DOSE METRICS: Total DLP (mGy-cm): 249.87 FINDINGS: Bones/joints: No acute fracture or subluxation. Mild chronic degenerative changes without severe spinal stenosis. Salivary glands: Multiple subcentimeter intraparotid nodules and additional tiny dystrophic calcifications within both parotid glands. Lungs: Minimal biapical scarring. Soft tissues: Visualized paravertebral soft tissues demonstrate no acute abnormality. CT/CT cervical spin wo con* [id number] IMPRESSION: 1. No acute findings. 2. Multiple subcentimeter intraparotid nodules and additional tiny dystrophic calcifications within both parotid glands. Nonspecific, but can be seen with Sjogren's disease amongst other possibilities. Clinical correlation recommended.
--- NOTE | 2023-12-26 00:39 | CTR_ITS ---
PROCEDURE INFORMATION: Exam: CT Head Without Contrast Exam date and time: 12/26/2023 12:54 AM Age: 63 years old Clinical indication: Injury or trauma; Fall; Blunt trauma (contusions or hematomas); Patient HX: No loc, no NEWTON; Additional info: Fall injury TECHNIQUE: Imaging protocol: Computed tomography of the head without contrast. Radiation optimization: All CT scans at this facility use at least one of these dose optimization techniques: automated exposure control; mA and/or kV adjustment per patient size (includes targeted exams where dose is matched to clinical indication); or iterative reconstruction. COMPARISON: CT facial bones wo contrast 12/26/2023 12:57 AM RADIATION DOSE METRICS: Total DLP (mGy-cm): 1087.45 FINDINGS: Brain: No acute intracranial hemorrhage. No abnormal extra-axial fluid collection. No midline shift or mass effect. No acute large territory infarct. Cerebral ventricles: No ventriculomegaly. Paranasal sinuses: Visualized sinuses are unremarkable. No fluid levels. Mastoid air cells: Visualized mastoid air cells are well aerated. Bones/joints: Unremarkable. No acute fracture. Soft tissues: Unremarkable. CT/CT head wo con* [id number] IMPRESSION: No acute intracranial abnormality.
--- NOTE | 2023-12-26 00:40 | XRR_ITS ---
PROCEDURE INFORMATION: Exam: XR Left Knee Exam date and time: 12/26/2023 1:20 AM Age: 63 years old Clinical indication: Injury or trauma; Fall; Blunt trauma; Left; Patient HX: Pain knee cap/bruising and abrasions TECHNIQUE: Imaging protocol: Radiologic exam of the left knee. Views: 3 views. COMPARISON: CR XR knees AP WB w LT lmt ORTH 11/11/2023 7:57 AM FINDINGS: Bones/joints: No acute fracture or dislocation. Stable [id number] chronic degenerative changes. No obvious joint effusion. Soft tissues: No radiopaque foreign bodies. XR/XR knee LT 3V* [id number] IMPRESSION: No acute fracture or dislocation.
--- NOTE | 2023-12-26 00:40 | XRR_ITS ---
PROCEDURE INFORMATION: Exam: XR Right Wrist Exam date and time: 12/26/2023 1:15 AM Age: 63 years old Clinical indication: Injury or trauma; Fall; Blunt trauma (contusions or hematomas); Wrist; Right; Patient HX: Pain anterior carpal area TECHNIQUE: Imaging protocol: Radiologic exam of the right wrist. Views: 3 or more views. COMPARISON: No relevant prior studies available. FINDINGS: Bones/joints: No acute fracture or dislocation. Soft tissues: Normal. XR/XR wrist RT min 3V* [id number] IMPRESSION: No acute findings.
--- NOTE | 2023-12-26 00:42 | W.ED.FALL ---
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 Patient landed onto the concrete injuring her nose and face. Patient does take daily aspirin. Patient reports no headache at this time. Patient has abrasions to the right palmar hand and left knee. Contusion is also noted to the left knee. Patient has a history of depression, recurrent urinary tract infections, GERD, steroid use, and sicca syndrome Review of Systems General: Reports: 10 or more systems reviewed and unremarkable except in HPI and below PFSH ED PFSH: Medical History (Updated 12/26/23 @ 02:13 by Dhruv Chowdhury DO) Sicca syndrome Immunization counseling High risk medication use No pertinent past medical history neghx: htn,dm,thyroid,PE PCP: Lisa Alvarez Centromere antibody positive Swelling of both parotid glands Dry mouth Inflammatory arthritis Positive TARA (antinuclear antibody) History of shingles Occurred in approximately 2015 SERGIO (obstructive sleep apnea) Using CPAP. Neurogenic bladder Patient found to have badly distended poorly emptying bladder. Had performed self-catheterization for several years with slow recovery of spontaneous voiding. Urinary retention History of DVT of lower extremity (~09/2011) Right leg GERD (gastroesophageal reflux disease) Depression Surgical History (Updated 12/24/23 @ 16:28 by Lori Johnson APN, RUDDY) History of hip replacement (~06/2023) Left hip---Dr. Peter S/P endometrial ablation (09/08/04) Hysteroscopy with ThermaChoice endometrial ablation. [place] [facility] [place] History of cholecystectomy (~1997) Laparoscopic Hx of tubal ligation (~1989) Hx of tonsillectomy Family History Father Diabetes Heart disease Hypertension Grandmother Diabetes Paternal Heart disease Maternal Grandfather Stroke Maternal Family/Other Breast cancer Maternal Aunt--dx age 60's Ovarian cancer Maternal Aunt--dx age 60's Other Cancer Denies family history of Colon cancer Uterine cancer Thyroid disease Physical Exam Const: COMMON NORMALS: alert HENMT: COMMON NORMALS: normocephalic HEAD & SCALP: normocephalic and other (Abrasions to the face) Neck/C-Spine: COMMON NORMALS: full ROM Chest: COMMONS NORMALS: normal palpation of entire chest wall Resp: COMMON NORMALS: normal respiratory effort and clear to auscultation bilaterally AUSCULTATION: clear to auscultation bilaterally Cardio: COMMON NORMALS: regular rate and regular rhythm RATE: regular rate RHYTHM: regular rhythm Back/Pelvis: COMMON NORMALS: thoracic and lumbar spine normal to inspection Extremity: COMMON NORMALS: full ROM Neuro: SENSORIUM/ORIENTATION: Yes alert Skin: COMMON NORMALS: turgor normal GENERAL SKIN EXAM: turgor normal Course Vital Signs: Vital signs: Vital Signs Temperature 97.7 F 12/25/23 23:13 Pulse Rate 64 12/26/23 02:25 Respiratory Rate 17 12/25/23 23:13 Blood Pressure 162/75 12/26/23 02:25 Pulse Oximetry 98 12/26/23 02:25 Oxygen Delivery Me thod Room Air 12/25/23 23:13 MDM - Fall Medical Decision Making 63-year-old female comes in today after a trip and fall landing face down onto concrete. Patient has abrasions to the nose and upper lip. Patient has some dried blood in the nose. Patient moves neck without difficulty. Abdomen and chest wall are nontender. Patient has some abrasions to the right palmar hand. Patient has abrasion to the anterior left knee. Vital signs are unremarkable. Patient reports body aches and pains. Differential diagnosis includes facial fracture, intracranial bleeding, cervical neck fracture, right wrist fracture, patellar knee fracture. Lab Data Radiology Impressions Cervical Spine CT 12/26/23 00:39 IMPRESSION: 1. No acute findings. 2. Multiple subcentimeter intraparotid nodules and additional tiny dystrophic calcifications within both parotid glands. Nonspecific, but can be seen with Sjogren's disease amongst other possibilities. Clinical correlation recommended. Face CT 12/26/23 00:39 IMPRESSION: No acute findings. Head CT 12/26/23 00:39 IMPRESSION: No acute intracranial abnormality. Knee X-Ray 12/26/23 00:40 IMPRESSION: No acute fracture or dislocation. Wrist X-Ray 12/26/23 00:40 IMPRESSION: No acute findings. Discharge Plan Discharge Patient Disposition: Home Clinical Impression: Abrasion Fall Qualifiers: Encounter type: initial encounter Qualified Code(s): W19.XXXA - Unspecified fall, initial encounter Condition: Stable Prescriptions: No Action fluticasone propionate [Flonase Allergy Relief] 50 mcg/actuation spray,suspension 2 spray INTRANASAL DAILY PRN (Reason: Allergy Symptoms) glucosamine HCl 500 mg tablet 500 mg PO BID riboflavin (vitamin B2) 100 mg tablet 100 mg PO BEDTIME cholecalciferol (vitamin D3) 25 mcg (1,000 unit) capsule 1,000 unit PO BID methotrexate sodium 2.5 mg tablet See Rx Instructions PO .Q7days Qty: 30 3RF Rx Instructions: take 6 tabs on same day once a week PO .Q7days; cevimeline 30 mg capsule 1 cap PO TID Qty: 90 3RF folic acid 1 mg tablet 1 mg PO DAILY Qty: 30 3RF pantoprazole 40 mg tablet,delayed release (DR/EC) 40 mg PO BEDTIME Qty: 90 1RF (DME) Hinged Knee Brace See Rx Instructions .Route .MEDSUPPLY Qty: 1 0RF Rx Instructions: As directed ondansetron HCl 4 mg tablet 4 mg PO TID PRN (Reason: nausea and vomiting) Qty: 30 1RF methenamine hippurate 1 gram tablet 1 g PO BID Qty: 180 3RF escitalopram oxalate 20 mg tablet See Rx Instructions .ROUTE .COMPLEX Qty: 30 0RF Dose Instruction: TAKE ONE TABLET BY MOUTH DAILY Rx Instructions: TAKE ONE TABLET BY MOUTH DAILY sulfasalazine 500 mg tablet See Rx Instructions .ROUTE .COMPLEX Qty: 120 3RF Dose Instruction: TAKE TWO TABLETS BY MOUTH TWICE DAILY WITH FOOD Rx Instructions: TAKE TWO TABLETS BY MOUTH TWICE DAILY WITH FOOD prednisone 5 mg tablet 5 mg PO BEDTIME Qty: 90 1RF divalproex 250 mg tablet,delayed release (DR/EC) See Rx Instructions .ROUTE .COMPLEX Qty: 60 0RF Dose Instruction: TAKE ONE TABLET BY MOUTH TWICE DAILY Rx Instructions: TAKE ONE TABLET BY MOUTH TWICE DAILY nystatin 100,000 unit/gram powder See Rx Instructions .ROUTE .COMPLEX Qty: 60 1RF Dose Instruction: apply topically four times daily needed FOR SKIN yeast Rx Instructions: apply topically four times daily needed FOR SKIN yeast Vitamin C 1,000 mg Tablet 1,000 mg PO BID ursodiol 500 mg tablet 500 mg PO BID Discharge Orders: Discharge ED (Routine); Ordered 12/26/23 Ordered By: Dhruv Chowdhury Referrals: Claire Castillo FNP [Primary Care Provider] - 1 week Patient Instructions: Abrasion (ED) Activity Restrictions/Additional Instructions: Your scans and x-rays performed in ER did not reveal any broken bones or internal bleeding. It is felt to have abrasions and contusions. Please take [id number] Tylenol as needed for pain. Please follow-up with your family practitioner in the next 7 to 10 days Coding Level of Care Code ED Physician Scribe for Chg Fwd Documented by User: Dhruv Chowdhury DO 12/26/23 02:31 HPI - Fall General: Chief Complaint: Fall Stated Complaint: fell, hit face hand, knee Time Seen by Provider: 12/26/23 00:32 [facility] ED PFSH: Medical History (Updated 12/26/23 @ 02:13 by Dhruv Chowdhury DO) Sicca syndrome Immunization counseling High risk medication use No pertinent past medical history neghx: htn,dm,thyroid,PE PCP: Lisa Alvarez Centromere antibody positive Swelling of both parotid glands Dry mouth Inflammatory arthritis Positive TARA (antinuclear antibody) History of shingles Occurred in approximately 2015 SERGIO (obstructive sleep apnea) Using CPAP. Neurogenic bladder Patient found to have badly distended poorly emptying bladder. Had performed self-catheterization for several years with slow recovery of spontaneous voiding. Urinary retention History of DVT of lower extremity (~09/2011) Right leg GERD (gastroesophageal reflux disease) Depression Surgical History (Updated 12/24/23 @ 16:28 by Lori Johnson APN, RUDDY) History of hip replacement (~06/2023) Left hip---Dr. Peter S/P endometrial ablation (09/08/04) Hysteroscopy with ThermaChoice endometrial ablation. [place] [facility] [place] History of cholecystectomy (~1997) Laparoscopic Hx of tubal ligation (~1989) Hx of tonsillectomy Family History Father Diabetes Heart disease Hypertension Grandmother Diabetes Paternal Heart disease Maternal Grandfather Stroke Maternal Family/Other Breast cancer Maternal Aunt--dx age 60's Ovarian cancer Maternal Aunt--dx age 60's Other Cancer Denies family history of Colon cancer Uterine cancer Thyroid disease Course Vital Signs: Vital signs: Vital Signs Temperature 97.7 F 12/25/23 23:13 Pulse Rate 64 12/26/23 02:25 Respiratory Rate 17 12/25/23 23:13 Blood Pressure 162/75 12/26/23 02:25 Pulse Oximetry 98 12/26/23 02:25 Oxygen Delivery Me thod Room Air 12/25/23 23:13 MDM - Fall Medical Records I reviewed the patient's medical records. Lab Data I reviewed the patient's lab results. Radiology Impressions Cervical Spine CT 12/26/23 00:39 IMPRESSION: 1. No acute findings. 2. Multiple subcentimeter intraparotid nodules and additional tiny dystrophic calcifications within both parotid glands. Nonspecific, but can be seen with Sjogren's disease amongst other possibilities. Clinical correlation recommended. Face CT 12/26/23 00:39 IMPRESSION: No acute findings. Head CT 12/26/23 00:39 IMPRESSION: No acute intracranial abnormality. Knee X-Ray 12/26/23 00:40 IMPRESSION: No acute fracture or dislocation. Wrist X-Ray 12/26/23 00:40 IMPRESSION: No acute findings. All radiology interpretation(s) finalized by discharge Discharge Plan Discharge Patient Disposition: Home Clinical Impression: Abrasion Fall Qualifiers: Encounter type: initial encounter Qualified Code(s): W19.XXXA - Unspecified fall, initial encounter Condition: Stable Prescriptions: No Action fluticasone propionate [Flonase Allergy Relief] 50 mcg/actuation spray,suspension 2 spray INTRANASAL DAILY PRN (Reason: Allergy Symptoms) glucosamine HCl 500 mg tablet 500 mg PO BID riboflavin (vitamin B2) 100 mg tablet 100 mg PO BEDTIME cholecalciferol (vitamin D3) 25 mcg (1,000 unit) capsule 1,000 unit PO BID methotrexate sodium 2.5 mg tablet See Rx Instructions PO .Q7days Qty: 30 3RF Rx Instructions: take 6 tabs on same day once a week PO .Q7days; cevimeline 30 mg capsule 1 cap PO TID Qty: 90 3RF folic acid 1 mg tablet 1 mg PO DAILY Qty: 30 3RF pantoprazole 40 mg tablet,delayed release (DR/EC) 40 mg PO BEDTIME Qty: 90 1RF (DME) Hinged Knee Brace See Rx Instructions .Route .MEDSUPPLY Qty: 1 0RF Rx Instructions: As directed ondansetron HCl 4 mg tablet 4 mg PO TID PRN (Reason: nausea and vomiting) Qty: 30 1RF methenamine hippurate 1 gram tablet 1 g PO BID Qty: 180 3RF escitalopram oxalate 20 mg tablet See Rx Instructions .ROUTE .COMPLEX Qty: 30 0RF Dose Instruction: TAKE ONE TABLET BY MOUTH DAILY Rx Instructions: TAKE ONE TABLET BY MOUTH DAILY sulfasalazine 500 mg tablet See Rx Instructions .ROUTE .COMPLEX Qty: 120 3RF Dose Instruction: TAKE TWO TABLETS BY MOUTH TWICE DAILY WITH FOOD Rx Instructions: TAKE TWO TABLETS BY MOUTH TWICE DAILY WITH FOOD prednisone 5 mg tablet 5 mg PO BEDTIME Qty: 90 1RF divalproex 250 mg tablet,delayed release (DR/EC) See Rx Instructions .ROUTE .COMPLEX Qty: 60 0RF Dose Instruction: TAKE ONE TABLET BY MOUTH TWICE DAILY Rx Instructions: TAKE ONE TABLET BY MOUTH TWICE DAILY nystatin 100,000 unit/gram powder See Rx Instructions .ROUTE .COMPLEX Qty: 60 1RF Dose Instruction: apply topically four times daily needed FOR SKIN yeast Rx Instructions: apply topically four times daily needed FOR SKIN yeast Vitamin C 1,000 mg Tablet 1,000 mg PO BID ursodiol 500 mg tablet 500 mg PO BID Discharge Orders: Discharge ED (Routine); Ordered 12/26/23 Ordered By: Dhruv Chowdhury Referrals: Claire Castillo FNP [Primary Care Provider] - 1 week Patient Instructions: Abrasion (ED) Activity Restrictions/Additional Instructions: Your scans and x-rays performed in ER did not reveal any broken bones or internal bleeding. It is felt to have abrasions and contusions. Please take [id number] Tylenol as needed for pain. Please follow-up with your family practitioner in the next 7 to 10 days Coding Level of Care Code ED Physician Scribe for Javan Pack
[2023-12-26] MEDS: acetaminophen 500 mg Tablet 1000 MG PO (01:10)
[2023-12-26 02:25] VITALS: BP 162/75; PULSE 64; O2SAT 98
== END 2023-12-26 02:27 | disposition home or self-care (01) ==
PROVIDERS: Emergency Provider Nurse Practitioner Family; PCP Nurse Practitioner Family
DX: S00.31XA Abrasion of nose, initial encounter (principal); S00.511A Abrasion of lip, initial encounter; W18.09XA Striking against other object with subsequent fall, initial encounter
CPT/HCPCS: 70450; 70486; 72125; 73110; 73562; 99284

== ENCOUNTER 2024-01-22 06:33 | Day surgery (SDC) | payer OTHER, SELFPAY ==
[2024-01-22 06:50] VITALS: BP 131/79; PULSE 87; RESP 18; TEMP 36.4; O2SAT 97; BMI 32.6
[2024-01-22] MEDS: sodium chloride 0.9% 1,000 ML 30 ML IV (06:56)
--- NOTE | 2024-01-22 07:10 | P.ANESASSM_ITS ---
Pre-Anesthetic Assessment Height/Weight: Height 1.73 m Weight 97.522 kg Temp Pulse Resp BP Pulse Ox O2 Del Method 97.5 F L 87 18 131/79 97 Room Air 01/22/24 06:50 01/22/24 06:50 01/22/24 06:50 01/22/24 06:50 01/22/24 06:50 01/22/24 06:50 Preop Diagnosis: Screening Operation Date: 01/22/24 07:30 Proposed Procedures p 90257 colonoscopy G0121 screen colon a risk Z12.11(Not Applicable) - Darren Martini DO Familial anesthetic complications: None Was Beta Dean taken within 24 hours: N/A Was Clonidine taken within 24 hours: N/A Last intake: Intake Last Liquid Date 01/21/24 Last Liquid Time 23:30 Last Solid Date 01/20/24 Last Solid Time 19:00 Social No alcohol and No tobacco Exam alert, oriented x 3, clear to auscultation bilaterally and regular rate & rhythm Airway Mallampati: Class II Dentition: partials (upper, removed) History/ROS No significant history except as noted Pulmonary None reported CV/HEM None reported None reported Hepatic Pt states she has a liver condition from a previous medication. GI Gastroesophageal Reflux Disease Metabolic None reported [facility] [place] Rheumatoid Arthritis Neuropsych None reported Anesthetic Plan ASA status: 3 Anesthesia: Anesthesia Evaluation and MAC Risk of > 500 ml blood loss (7ml/kg in children): No Medications/Allergies Home Medications Medication Instructions Recorded Confirmed Last Taken Type fluticasone propionate 50 2 spray intranasal DAILY PRN 09/19/20 01/22/24 2 Months Ago History mcg/actuation nasal Allergy Symptoms ~11/21/23 spray,suspension (Flonase Allergy Relief) glucosamine HCl 500 mg tablet 500 mg PO BID 09/19/20 01/22/24 01/21/24 History cholecalciferol (vitamin D3) 25 1,000 unit PO BID 10/02/21 01/22/24 01/21/24 History mcg (1,000 unit) capsule riboflavin (vitamin B2) 100 mg 100 mg PO BEDTIME 12/05/21 01/22/24 01/21/24 History tablet ondansetron HCl 4 mg tablet 4 mg PO TID PRN nausea and 01/18/23 01/22/24 2 Months Ago Rx vomiting #30 tabs ~11/21/23 methenamine hippurate 1 gram tablet 1 g PO BID #180 tabs 02/05/23 01/22/24 01/21/24 Rx ascorbic acid (vitamin C) 1,000 mg 1,000 mg PO BID 09/01/23 01/22/24 01/21/24 History tablet (Vitamin C) ursodiol 500 mg tablet 500 mg PO BID 09/01/23 01/22/24 01/21/24 History cevimeline 30 mg capsule 1 cap PO TID #90 caps 11/04/23 01/22/24 01/21/24 Rx folic acid 1 mg tablet 1 mg PO DAILY #30 tabs 11/04/23 01/22/24 01/21/24 Rx methotrexate sodium 2.5 mg tablet See Rx Instructions PO .Q7days #30 11/04/23 01/22/24 01/20/24 Rx tabs prednisone 5 mg tablet 5 mg PO BEDTIME #90 tabs 11/19/23 01/22/24 01/21/24 Rx nystatin 100,000 unit/gram topical See Rx Instructions .Route 11/29/23 01/22/24 01/20/24 Rx powder .COMPLEX #60 grams pantoprazole 40 mg tablet,delayed 40 mg PO BID 6 weeks #84 tabs 01/06/24 01/22/24 01/21/24 Rx release (Protonix) divalproex 250 mg tablet,delayed 250 mg PO BEDTIME 01/20/24 01/22/24 01/21/24 History release escitalopram oxalate 20 mg tablet 20 mg PO DAILY 01/20/24 01/22/24 01/21/24 History sulfasalazine 500 mg tablet 500 mg PO BIDWM 01/20/24 01/22/24 01/21/24 History Allergies Allergy/AdvReac Type Severity Reaction Status Date / Time doxepin Allergy Intermediate SOB Verified 01/20/24 12:57 nitrofurantoin Allergy ADR-Dizzine Verified 01/20/24 12:57 [From Macrodantin] ss topiramate [From Topamax] Allergy ALGY-Rash Verified 01/20/24 12:57 tramadol [From Ultram] Allergy ADR-Halluci Verified 01/20/24 12:57 nating Current Medications Generic Name Dose Route Start Last Admin Trade Name Freq PRN Reason Stop Dose Admin Sodium Chloride 1,000 mls @ 30 mls/hr 01/22/24 06:45 01/22/24 06:56 Sodium Chloride 0.9% IV 01/23/24 06:44 30 mls/hr .Q24H CARMITA Administration PFSH Anesthesia Medical History Sicca syndrome Immunization counseling High risk medication use No pertinent past medical history neghx: htn,dm,thyroid,PE PCP: Lisa Alvarez Centromere antibody positive Swelling of both parotid glands Dry mouth Inflammatory arthritis Positive TARA (antinuclear antibody) History of shingles Occurred in approximately 2015 SERGIO (obstructive sleep apnea) Using CPAP. Neurogenic bladder Patient found to have badly distended poorly emptying bladder. Had performed self-catheterization for several years with slow recovery of spontaneous voiding. Urinary retention History of DVT of lower extremity (~09/2011) Right leg GERD (gastroesophageal reflux disease) Depression Surgical History History of hip replacement (~06/2023) Left hip---Dr. Peter S/P endometrial ablation (09/08/04) Hysteroscopy with [employer]maChoice endometrial ablation. Per[place]. Menjivar [place] [facility] [place], [place] History of cholecystectomy (~1997) Laparoscopic Hx of tubal ligation (~1989) Hx of tonsillectomy Family History Father Diabetes Heart disease Hypertension Grandmother Diabetes Paternal Heart disease Maternal Grandfather Stroke Maternal Family/Other Breast cancer Maternal Aunt--dx age 60's Ovarian cancer Maternal Aunt--dx age 60's Other Cancer Denies family history of Colon cancer Uterine cancer Thyroid disease Social History Smoking and tobacco/nicotine status: never used tobacco/nicotine Alcohol intake: never Data Anesthesia Cardiac Studies: No Data to Display
--- NOTE | 2024-01-22 07:39 | W.PM.OPSUD ---
Surgery/Procedure H&P Update DATE OF PROCEDURE: January 22, 2024 DATE H&P PERFORMED: 01/06/24 H&P UPDATE INFORMATION: I have reviewed H&P completed within last 30 days, I have examined patient prior to procedure and No changes to prior documentation PREOP DIAGNOSIS: Screening PLANNED PROCEDURE: Operation Date: 01/22/24 07:30 Proposed Procedures p 09318 colonoscopy G0121 screen colon a risk Z12.11(Not Applicable) - Darren Martini, DO
[2024-01-22 07:58] VITALS: BP 110/67; PULSE 71; RESP 16; TEMP 36.1; O2SAT 97
[2024-01-22 08:10] VITALS: BP 117/64; PULSE 67; RESP 18; O2SAT 97
[2024-01-22 08:20] VITALS: BP 117/64; PULSE 70; RESP 18; O2SAT 100
--- NOTE | 2024-01-22 15:23 | ANE.PACU2 ---
Inpatient post-anesthesia follow up: Airway intact: Yes Vital signs: Temperature 97 F Pulse Rate 70 Respiratory Rate 18 Blood Pressure 117/64 Pulse Oximetry 100 Oxygen Delivery Me thod Room Air Oxygen Flow Rate Fraction of Inspir ed Oxygen Hydration adequate: Yes Nausea and vomiting: No Pain level: 2 Mental status: Baseline
== END 2024-01-22 08:29 | disposition home or self-care (01) ==
PROVIDERS: PCP Nurse Practitioner Family; Visit Provider Surgery
PROC: 0DJD8ZZ Inspection of Lower Intestinal Tract, Via Natural or Artificial Opening Endoscopic (ICD-10-PCS; CPT 45378; principal; 2024-01-22 07:30)
DX: Z12.11 Encounter for screening for malignant neoplasm of colon (principal); K57.30 Diverticulosis of large intestine without perforation or abscess without bleeding; K21.9 Gastro-esophageal reflux disease without esophagitis; M06.9 Rheumatoid arthritis, unspecified; G47.33 Obstructive sleep apnea (adult) (pediatric)
CPT/HCPCS: 45378; J2704; J7030

== ENCOUNTER → 2024-01-31 08:46 | Outpatient (BNVA) | payer OTHER, SELFPAY | PROVIDERS: PCP Nurse Practitioner Family; Visit Provider Nurse Practitioner | DX: M25.562 Pain in left knee (principal); M17.11 Unilateral primary osteoarthritis, right knee; M79.89 Other specified soft tissue disorders | CPT/HCPCS: 73560; 73565 ==

== ENCOUNTER → 2024-02-18 16:55 | Outpatient (BNVA) | payer OTHER, SELFPAY | PROVIDERS: PCP Nurse Practitioner Family; Visit Provider Nurse Practitioner Family | DX: Z13.6 Encounter for screening for cardiovascular disorders (principal); N31.9 Neuromuscular dysfunction of bladder, unspecified; R73.9 Hyperglycemia, unspecified; E55.9 Vitamin D deficiency, unspecified | CPT/HCPCS: 80061; 81003; 82306; 82607; 83036; 84443; 87086 ==

== ENCOUNTER 2024-03-20 14:31 | Outpatient (CLI) | payer OTHER, SELFPAY ==
[2024-03-20 15:34] LABS: Basophils % 0.6 %; Eosinophils # 0.2 10^3/uL (0.0-0.8); Eosinophils % 3.5 %; Hematocrit 40.6 % (36-47); Lymphocytes # 2.2 10^3/uL (0.8-4.8); Lymphocytes % 33.8 %; Mean Corpuscular HGB Conc 31.8 g/dL (30-55); Mean Corpuscular Hemoglobin 31.5 pg (27-33); Mean Platelet Volume 11.2 fL (7.4-10.4); Monocytes # 0.6 10^3/uL (0.2-0.9); Monocytes % 8.9 %; Neutrophils % 52.7 %; Nucleated Red Blood Cells % 0 %; Platelet Count 167 10^3/cmm (157-399); Red Cell Distribution Width 13.6 % (12.1-15.1); White Blood Count 6.63 10^3/uL (3.29-11.43)
[2024-03-20 15:48] LABS: Alanine Aminotransferase 32 U/L (0-33); Albumin Level 4.2 g/dL (3.5-5.2); Alkaline Phosphatase 93 U/L (35-105); Aspartate Amino Transferase 24 U/L (0-32); C Reactive Protein 8.3 mg/L (0.0-4.9); Globulin 2.3 g/dL (1.3-4.6); Glomerular Filtration Rate 125.4 mL/min (90-130); Total Bilirubin 0.2 mg/dL (0.15-1.2); Total Protein 6.5 g/dL (6.6-8.7)
[2024-03-20 16:02] LABS: Tumor Marker Alpha Fetoprotein 2.7 ng/mL (0-8.3)
[2024-03-20 16:13] LABS: Alanine Aminotransferase 34 U/L (0-33); Albumin Level 4.1 g/dL (3.5-5.2); Alkaline Phosphatase 88 U/L (35-105); Anion Gap 15.8 (5-19); Aspartate Amino Transferase 21 U/L (0-32); Blood Urea Nitrogen 13 mg/dL (8-23); Calcium 9.4 mg/dL (8.5-10.5); Carbon Dioxide 26 mmol/L (22-29); Chloride 103 mmol/L (98-107); Globulin 2.7 g/dL (1.3-4.6); Glomerular Filtration Rate 125.4 mL/min (90-130); Glucose 87 mg/dL (65-115); Osmolality Calculated 291 mOsm/kg (285-295); Potassium 3.8 mmol/L (3.5-5.1); Sodium 141 mmol/L (136-145); Total Bilirubin 0.3 mg/dL (0.15-1.2); Total Protein 6.8 g/dL (6.6-8.7)
== END 2024-03-20 14:32 | disposition home or self-care (01) ==
PROVIDERS: Internal Medicine Rheumatology; PCP Nurse Practitioner Family; Visit Provider Nurse Practitioner Family
DX: M19.90 Unspecified osteoarthritis, unspecified site (principal); Z79.899 Other long term (current) drug therapy
CPT/HCPCS: 36415; 80053; 80076; 82105; 82565; 85025; 86140

== ENCOUNTER → 2024-07-06 09:28 | Outpatient (BNVA) | payer OTHER, SELFPAY | PROVIDERS: PCP Nurse Practitioner Family; Visit Provider Internal Medicine Rheumatology | DX: M19.90 Unspecified osteoarthritis, unspecified site (principal); Z79.899 Other long term (current) drug therapy | CPT/HCPCS: 36415; 80076; 82565; 85025; 85651; 86140 ==

== ENCOUNTER → 2024-07-20 08:11 | Outpatient (BNVA) | payer OTHER, SELFPAY | PROVIDERS: PCP Nurse Practitioner Family; Visit Provider Specialist | DX: Z96.642 Presence of left artificial hip joint (principal); M16.11 Unilateral primary osteoarthritis, right hip | CPT/HCPCS: 73502 ==

== ENCOUNTER 2024-08-17 07:04 | Outpatient (CLI) | payer OTHER, SELFPAY ==
--- NOTE | 2024-08-17 07:15 | USCV_ITS ---
Priscila Tinajero Age: 64 Gender: F : 1960 Exam Date: 08/17/2024 07:20 Ordering Phys: Christiano Hastings MD Technologist: Exam Location: [facility] [place] Indication: murmur BP: 120 / 70 HR: 96 Rhythm: Sinus Technical Quality: Adequate MEASUREMENTS (Male / Female) Normal Values 2D ECHO LV Diastolic Diameter PLAX 4.9 cm 4.2 - 5.9 / 3.9 - 5.3 cm IVS Diastolic Thickness 1.1 cm 0.6 - 1.0 / 0.6 - 0.9 cm IVS Systolic Thickness 1.7 cm LVPW Diastolic Thickness 1.2 cm 0.6 - 1.0 / 0.6 - 0.9 cm LVPW Systolic Thickness 1.7 cm LVOT Diameter 2.1 cm LV Ejection Fraction 2D Teich 65.7 % LV Ejection Fraction MOD 4C 67.7 % LV Ejection Fraction MOD 2C 67.2 % LV Ejection Fraction 2C AL 67.1 % LA Diameter 4.2 cm RA Systolic Volume 4C AL 36.6 ml RA Systolic Volume 4C MOD 34.2 ml Aorta at Sinotubular Diameter 2.5 cm M-MODE LA Ao Ratio MM 1.5 AV Cusp Separation MM 1.7 cm DOPPLER AV Peak Velocity 260.3 cm/s LVOT Peak Velocity 74.0 cm/s AV Area Cont Eq vti 1.1 cm squared AV Area Cont Eq pk 1.0 cm squared MV Peak Velocity 115.0 cm/s MV Area PHT 3.2 cm squared Mitral E to A Ratio 0.9 TV Peak Velocity 182.5 cm/s TR Peak Velocity 217.0 cm/s TR Peak Gradient 18.8 mmHg TV Peak E Velocity 92.0 cm/s Right Atrial Pressure 3.0 mmHg Pulmonary Artery Systolic Pressu 21.8 mmHg PV Peak Velocity 120.0 cm/s FINDINGS Left Ventricle Left ventricle is normal size. LV systolic function is normal with EF of 60-65%. No regional wall motion abnormalities are seen. Grade 1 diastolic dysfunction. Right Ventricle Normal in size and function Right Atrium Normal in size Left Atrium Normal in size Mitral Valve Mild to moderate mitral annular calcification. Mild mitral regurgitation. Aortic Valve Aortic valve is thickened. Mild aortic stenosis with aortic valve area of 1.12 cm squared and mean gradient of 10 mmHg. Tricuspid Valve Mild tricuspid regurgitation. RVSP is 20 - 25 mmHg. Pulmonic Valve Not well visualized Pericardium Normal Aorta Normal in size IVC Appears to be normal CONCLUSIONS LV systolic function is normal with EF of 60-65% Grade 1 diastolic dysfunction Mild mitral regurgitation Mild aortic stenosis Mild tricuspid regurgitation No comparison studies are available. Rufus Sheth MD (Electronically Signed) Final Date: 17 August 2024 12:27 S
== END 2024-08-17 07:05 | disposition home or self-care (01) ==
LOC: RAD 07:04
PROVIDERS: PCP Nurse Practitioner Family; Visit Provider Internal Medicine Rheumatology
DX: I50.30 Unspecified diastolic (congestive) heart failure (principal); I35.8 Other nonrheumatic aortic valve disorders; I35.2 Nonrheumatic aortic (valve) stenosis with insufficiency
CPT/HCPCS: 36415; 80076; 82565; 85025; 85651; 86140; 93306

== ENCOUNTER → 2024-09-08 10:54 | Outpatient (BNVA) | payer OTHER, SELFPAY | PROVIDERS: PCP Nurse Practitioner Family; Visit Provider Nurse Practitioner | DX: M18.11 Unilateral primary osteoarthritis of first carpometacarpal joint, right hand; M19.041 Primary osteoarthritis, right hand | CPT/HCPCS: 73130 ==

== ENCOUNTER → 2025-01-05 09:59 | Outpatient (BNVA) | payer OTHER, SELFPAY | PROVIDERS: PCP Nurse Practitioner Family; Visit Provider Nurse Practitioner Women's Health | DX: Z01.419 Encounter for gynecological examination (general) (routine) without abnormal findings (principal); R93.1 Abnormal findings on diagnostic imaging of heart and coronary circulation; Z78.0 Asymptomatic menopausal state; M85.88 Other specified disorders of bone density and structure, other site; N95.8 Other specified menopausal and perimenopausal disorders | CPT/HCPCS: 87624 ==

== ENCOUNTER → 2025-01-11 10:27 | Outpatient (BNVA) | payer OTHER, SELFPAY | PROVIDERS: PCP Nurse Practitioner Family; Visit Provider Internal Medicine Rheumatology | DX: R76.8 Other specified abnormal immunological findings in serum (principal); Z79.899 Other long term (current) drug therapy | CPT/HCPCS: 36415; 80076; 82565; 83036; 85025; 85651; 86140 ==

== ENCOUNTER 2025-02-01 08:50 | Outpatient (CLI) | payer OTHER, SELFPAY ==
--- NOTE | 2025-02-01 | ECG_ITS ---
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 Interpretive Statements LEXISCAN: Procedure: At the baseline, the blood pressure was 174/86 mmHg with a heart rate of 70bpm. The electrocardiogram showed normal sinus rhythm, normal axis with normal ST and T's. The Lexiscan was infused over a period of 20 seconds. A total of 0.4 mg of Lexiscan was infused. The stress phase was continued for a total of 5 minutes. Heart rate was at the end of stress phase was 90 bpm and a blood pressure of 153/87 mmHg. The EKG at the peak infusion revealed normal sinus rhythm with no significant ST-T wave changes. Sestamibi was injected 20 seconds after the Lexiscan infusion. Blood pressure at the end of recovery phase was 159/95 mmHg with a heart rate of 85 bpm. Conclusion: 1. Normal EKG response to Lexiscan infusion 2. No Lexiscan induced chest pain or cardiac arrhythmia. 3. Normal blood pressure and heart rate response. 4. Sestamibi/sestamibi perfusion scan pending; see separate report. Electronically Signed On 02-14-2025 02:19:58 CDT by Rufus Sheth M.D. [email or web address]
[2025-02-01 09:12] VITALS: BMI 36.1
--- NOTE | 2025-02-01 09:18 | NMCV_ITS ---
NM carmine perf SPECT r/s* [id number] Priscila Tinajero Age: 64 Gender: F : 1960 Exam Date: 02/01/2025 09:18 Ordering Phys: Uri Yates MD ([email or web address]) Technologist: LIVIA Fiore Exam Location: [facility] Indications: cp STRESS TEST Please see separate stress test report in [facility] for full findings IMAGE PROTOCOL Rest/Stress 1 Lexiscan Day Radiopharmaceutical Dose (mCi) Administration Site Administered by Rest: Tc-99m 10.7 IV LIVIA Fiore Sestamibi Stress:Tc-99m 32.8 IV LIVIA Newby Sestamibi Rest: 01-Feb-2025 60 Discovery 630 Stress: 01-Feb-2025 30 Discovery 630 0.4mg Lexiscan. Images obtained in supine and prone position. SPECT RESULTS Technical Quality: Good Raw Data Analysis: Normal Image Corrections: No attenuation or motion correction applied Summed Stress Score: 5 Summed Rest Score: 3 Summed Difference Score: 3 PERFUSION FINDINGS SPECT images demonstrate homogeneous tracer distribution throughout the myocardium. FUNCTIONAL RESULTS (calculated via Gated SPECT) Stress Image LV EF (%): 80 Stress EDV (mL):95 TID: 1.05 Stress ESV (mL):19 FUNCTIONAL FINDINGS: There is normal left ventricular systolic function. IMPRESSIONS Myocardial perfusion imaging is normal. Uri Yates MD (Electronically Signed) Final Date: 02 February 2025 18:03 S
[2025-02-01] MEDS: regadenoson 0.4 Mg/5 ml Syringe IVP (10:52)
[2025-02-01 11:02] VITALS: BP 159/85; PULSE 85
== END 2025-02-01 08:51 | disposition home or self-care (01) ==
LOC: CDL 08:51
PROVIDERS: PCP Nurse Practitioner Family; Visit Provider Internal Medicine Cardiovascular Disease
DX: R07.9 Chest pain, unspecified (principal); R06.02 Shortness of breath
CPT/HCPCS: 36415; 78452; 93017; 96374; A9500; J2785

== ENCOUNTER 2025-02-12 11:00 | Outpatient (CLI) | payer OTHER, SELFPAY ==
[2025-02-12 15:34] LABS: Alanine Aminotransferase 39 U/L (0-33); Albumin Level 4.4 g/dL (3.5-5.2); Alkaline Phosphatase 86 U/L (35-105); Aspartate Amino Transferase 31 U/L (0-32); Globulin 2.4 g/dL (1.3-4.6); Thyroid Stimulating Hormone 2.36 uIU/mL (0.27-4.20); Total Bilirubin 0.3 mg/dL (0.15-1.2); Total Protein 6.8 g/dL (6.6-8.7)
== END 2025-02-12 11:01 | disposition home or self-care (01) ==
LOC: LAB 11:06
PROVIDERS: Absent Provider Nurse Practitioner Women's Health; PCP Nurse Practitioner Family; Visit Provider Internal Medicine Rheumatology
DX: Z79.899 Other long term (current) drug therapy (principal); R74.8 Abnormal levels of other serum enzymes; Z78.0 Asymptomatic menopausal state
CPT/HCPCS: 80076; 84443

== ENCOUNTER 2025-02-15 13:54 | Outpatient (CLI) | payer OTHER, SELFPAY ==
--- NOTE | 2025-02-15 13:40 | MM_ITS ---
WS: [id number] BILATERAL 3D TOMOSYNTHESIS DIGITAL SCREENING MAMMOGRAPHY WITH CAD CLINICAL INFORMATION: Z12.31 - Encounter for screening mammogram for malignant ... HISTORY: Screening mammogram. No current complaints. COMPARISON: 2022 TECHNIQUE: Bilateral CC and MLO views. FINDINGS: The breasts are composed of heterogeneous fibroglandular density tissue, which can limit the detection of small underlying mass lesions. No suspicious mass, asymmetry, calcifications, or architectural distortion. No evidence of malignancy. Stable nodular RIGHT breast tissue. MM/MM [facility] tomosynthesis [id number] IMPRESSION: DENSITY: The breasts are heterogeneously dense, which may obscure small masses. BI-RADS: 2 - Benign FOLLOW UP: 1 Year Follow-up Recommend return to annual screening mammography.
--- NOTE | 2025-02-15 14:00 | XR_ITS ---
WS: [id number] SCREENING DEXA SCAN [employer] CLINICAL INFORMATION: Z78.0 - Asymptomatic menopausal state COMPARISON: 2021 FINDINGS: The L1-L4 bone mineral density measures 1.028 g/cm2. This corresponds to a T score score of -1.3 and Z score of -1.0. Left forearm bone mineral density measures 0.75. This corresponds to a T score of -1.4 and Z score of -0.2. Right femoral neck bone mineral density measures 0.93. This corresponds to a T score of -0.6 of and Z score of -0.4. XR/XR DEXA axial skeleton* [id number] IMPRESSION: Osteopenia lumbar spine. Normal bone mineralization RIGHT femoral neck. Osteope dalton LEFT forearm. Patient's FRAX calculated 10 year probability for major osteoporotic fracture i s 15.1% and osteoporotic hip fracture is 1.6%.
== END 2025-02-15 13:55 | disposition home or self-care (01) ==
PROVIDERS: PCP Nurse Practitioner Family; Visit Provider Nurse Practitioner Women's Health
DX: Z12.31 Encounter for screening mammogram for malignant neoplasm of breast (principal); Z78.0 Asymptomatic menopausal state; M19.042 Primary osteoarthritis, left hand; R92.333 Mammographic heterogeneous density, bilateral breasts; N63.20 Unspecified lump in the left breast, unspecified quadrant; M85.89 Other specified disorders of bone density and structure, multiple sites
CPT/HCPCS: 73130; 77063; 77067; 77080

== ENCOUNTER → 2025-04-05 07:51 | Outpatient (BNVA) | payer OTHER, SELFPAY | PROVIDERS: PCP Nurse Practitioner Family; Visit Provider Specialist | DX: M17.12 Unilateral primary osteoarthritis, left knee (principal) | CPT/HCPCS: 73560; 73565 ==

== ENCOUNTER → 2025-07-05 11:20 | Outpatient (BNVA) | payer OTHER, SELFPAY | PROVIDERS: PCP Nurse Practitioner Family; Visit Provider Internal Medicine Rheumatology | DX: Z79.899 Other long term (current) drug therapy (principal) | CPT/HCPCS: 36415; 80076; 82306; 82565; 83520; 85025; 85651; 86140; 86480; 86704; 86803; 87340 ==

== ENCOUNTER → 2025-11-16 12:30 | Outpatient (BNVA) | payer OTHER, SELFPAY | PROVIDERS: PCP Nurse Practitioner Family; Visit Provider Internal Medicine Rheumatology | DX: Z79.899 Other long term (current) drug therapy (principal) | CPT/HCPCS: 36415; 80076; 82565; 85025; 85651; 86140 ==